=== PATIENT | female | born 1940 | race Caucasian/White ===

== ENCOUNTER 2016-11-26 15:26 | Inpatient (IN) ==
[2016-11-26] MEDS ORDERED: Ondansetron 4 MG/2 ML VIAL IVP ONE (17:36)
[2016-11-26] MEDS ORDERED: *HR* HYDROmorphone (PF) 1 MG/ML SYRINGE IM ONE (17:36)
--- NOTE | 2016-11-26 17:56 | Emergency Department Note ---
Disposition Clinical Impression: Thoracic spine fracture, Fracture of lumbar spine, Intractable pain Disposition: Admitted As Inpatient Condition: Good Time of Disposition: 21:13 Back Pain HPI - General Chief Complaint: ED Back Pain/Injury Stated Complaint: Back pain// has a fracture (t-12) Time Seen by Provider: 11/26/16 15:49 Source: patient Mode of arrival: wheelchair Limitations: no limitations Nursing Notes Reviewed: Yes Vital Signs Reviewed: Yes - History of Present Illness HPI Narrative: Patient presents to the ED with the chief complaint of back pain. Patient reports that just before Day. She was carrying a table and twisted funny and had onset of back pain. Reports that she was seen and evaluated in the emergency department and discharged home with symptomatic relief. A few weeks later went to her primary care physician who changed her from Skelaxin to baclofen in addition to her Percocet every 3-4 hours. Her pain has continued and has gotten worse. She states that she called her primary care physician who ordered an x-ray of her thoracic and lumbar spine, which showed a T12 compression fracture with moderate deformity. Patient presenting today simply for MRI. Somewhat of a concerning story is that over the last few days she has developed complete fecal incontinence. She states she had been constipated from the opioids. However, she has been unable to control her bowels whatsoever for the last few days. Denies any numbness, weakness or tingling in her upper or lower extremities. There is no abdominal pain, nausea or vomiting. No fever. - Related Data Home Medications Medication Instructions Recorded Confirmed Ascorbic Acid [Vitamin C] 1,000 mg PO DAILY 11/03/15 11/26/16 Cholecalciferol (D-3) [Vitamin D] 5,000 unit PO DAILY 11/03/15 11/26/16 Multivit-Min/Iron/Folic/Lutein 1 tab PO DAILY 11/03/15 11/26/16 [Centrum Silver Women Tablet] Raloxifene [Evista] 60 mg PO DAILY 11/03/15 11/26/16 Ranitidine HCl [Heartburn Relief] 150 mg PO BID 11/03/15 11/26/16 Vit C/E/Zn/Coppr/Lutein/Zeaxan 2 cap PO DAILY 11/03/15 11/26/16 [Preservision Areds 2 Softgel] Calcium Carbonate/Vitamin D3 2 each PO DAILY 09/02/16 11/26/16 [Calcium 600+D Softgel] Cyanocobalamin (Vitamin B-12) 500 mcg PO DAILY 09/02/16 11/26/16 [Vitamin B-12] Fish Oil/Dha/Epa [Fish Oil 1,200 1 each PO DAILY 09/02/16 11/26/16 mg Fish Oil] Golimumab (Simponi ARIA) [Simponi 50 mg IV Q8W 09/02/16 11/26/16 Aria (For Outpatient INFUSION)] Vitamin E (Dl,Tocopheryl Acet) 400 unit PO DAILY 09/02/16 11/26/16 [Vitamin E] Azathioprine [Imuran] 50 mg PO DAILY 11/26/16 Baclofen [Lioresal] 5 - 10 mg PO TID PRN 11/26/16 11/26/16 Oxycodone HCl/Acetaminophen 2 each PO Q4H PRN 11/26/16 11/26/16 [Percocet 5-325 mg Tablet] Temazepam [Restoril] 15 mg PO HS 11/26/16 11/26/16 metFORMIN [Glucophage] 500 mg PO QPM 11/26/16 11/26/16 predniSONE [PredniSONE] 20 mg PO DAILY 11/26/16 11/26/16 Allergies Allergy/AdvReac Type Severity Reaction Status Date / Time Penicillins [PCN] Allergy Mild Hives Verified 11/26/16 15:29 All systems ED: reviewed and negative except as stated. Constitutional: Denies: fever Respiratory: Denies: dyspnea Gastrointestinal: Reports: as per HPI. Denies: vomiting Musculoskeletal: Reports: back pain Past Medical History - Past Medical History Attestation: Yes The following information was validated with the patient. Source: patient Medical history: Reports: arthritis, diabetes, osteoporosis, other Surgical history: Reports: Psychiatric history: Reports: no psych history PREP MANAGER history: Reports: no PREP MANAGER history - Social History Smoking Status: Never smoker Smokeless Tobacco Status: No Alcohol use: Reports: none Drug use: Reports: none Physical Exam - General Limitations: no limitations General appearance: alert, in distress (pain) - Head Head exam: atraumatic, normocephalic, normal inspection - Eye Eye exam: Present: normal appearance, PERRL, EOMI - Respiratory Respiratory exam: Present: normal lung sounds bilaterally - Cardiovascular Cardiovascular exam: Present: regular rate, normal rhythm, normal heart sounds - Abdominal Exam Abdominal exam: Present: soft, Non-Tender. Absent: tenderness, distention, guarding, rebound, rigidity - Expanded Lower Extremity Exam Neurovascular/Tendon exam: Present: normal capillary refill. Absent: motor deficit, sensory deficit, tendon deficit - Back Exam Back exam: Present: tenderness (Tenderness in the lower thoracic upper lumbar and associated paraspinous musculature, but is worse on the right with associated tenderness. Tissue texture changes), muscle spasm, paraspinal tenderness. Absent: normal inspection, full ROM - Neurological Exam Neurological exam: Present: alert, oriented X3, CN II-XII intact - Expanded Neurological Exam Motor strength - LUE: 5/5 Motor strength - RUE: 5/5 Motor strength - LLE: 4/5 (limited by pain) Motor strength - RLE: 4/5 (limited by pain) DTR: patellar (L): 2+, patellar (R): 2+ - Psychiatric Psychiatric exam: Present: normal affect, normal mood - Skin Skin exam: Present: warm, dry, intact, normal color Course Course Narrative: Patient presenting with known T12 fracture and now having fecal incontinence. We will order an MRI to rule out spinal cord compression MRI is negative for compression, but does show in addition to T12 1 T6 and L1 compression fracture. Patient is still having pain. We will admit to the hospitalist service for spinal orthopedic consult in the morning. Patient signed out to the nighttime hospitalist and accepted for admission Vital Signs Temperature 98.1 F 11/26/16 15:29 Pulse Rate 89 11/26/16 15:29 Respiratory Rate 20 11/26/16 15:29 Blood Pressure 155/77 11/26/16 15:29 O2 Sat by Pulse Oximetry 97 11/26/16 15:29 Temperature 98.1 F 11/26/16 15:29 Pulse Rate 96 11/26/16 20:35 Respiratory Rate 16 11/26/16 21:36 Blood Pressure 148/82 11/26/16 21:36 O2 Sat by Pulse Oximetry 98 11/26/16 20:35 Oxygen Delivery Oxygen Delivery Room Air Back Pain/Injury - MDM Narrative Medical decision making narrative: I examined this patient and my medical decision-making was reviewed with the Resident Physician. I agree with the documented findings, disposition and treatment plan as described except to the extent set forth below. Patient seen and evaluated by Dr. Rojo and myself, I agree with his evaluation management plan, I supervised the care of the patient's stay. Patient presents today with some back pain and also some bowel incontinence. She has a known T12 fracture. This incontinence is new. When the imaging on her with MRI check lab work and then reassess something for pain control. She is in agreement with this plan. Lumbar Spine MRI 11/26/16 18:29 IMPRESSION: 1. Acute compression fractures of T6, T12, and L4. 2. No spinal cord or cauda equina compression. 3. 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 D/ / 11/26/2016 20:55:07 Aravind Yung MD / bala Interpreting Provider: Aravind Yung MD Thoracic Spine MRI 11/26/16 18:29 IMPRESSION: 1. Acute compression fractures of T6, T12, and L4. 2. No spinal cord or cauda equina compression. 3. 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 D/ / 11/26/2016 20:55:07 Aravind Yung MD / bala Interpreting Provider: Aravind Yung MD 2140 hrs.: Patient is going to be admitted this time hospices accepted her for admission. - Lab Data Result diagrams: 11/26/16 17:47 11/26/16 17:47 Lab Results 11/26/16 11/26/16 11/26/16 Range/Units 17:47 17:47 18:14 WBC 11.9 H (4.3-11.1) K/mcL RBC 4.69 (3.82-4.97) M/mcL Hgb 14.2 (11.5-15.4) g/dL Hct 44.2 (35.3-44.9) % MCV 94.2 (83.0-100.0) fL MCH 30.3 (28.0-33.3) pg MCHC 32.1 (31.6-35.5) g/dL RDW 14.6 H (11.5-14.5) % Plt Count 283 (140-400) K/mcL MPV 10.4 (9.4-12.4) fL Immature Gran % 1.5 (0-4) % Seg Neutrophils % 88.8 % Lymphocytes % 6.1 % Monocytes % 3.3 % Eosinophils % 0.0 % Basophils % 0.3 % Neutrophils # 10.6 H (1.6-8.9) K/mcL Lymphocytes # 0.7 (0.6-4.6) K/mcL Monocytes # 0.4 (0.0-1.3) K/mcL Eosinophils # 0.0 (0.0-0.6) K/mcL Basophils # 0.0 (0.0-0.2) K/mcL Sodium 137 (136-145) mEq/L Potassium 4.7 H (3.5-4.5) mEq/L Chloride 100 (98-109) mEq/L Carbon Dioxide 27 (19-29) mEq/L BUN 14 (7-20) mg/dL Creatinine 0.89 (0.57-1.11) mg/dL Est GFR ( Amer) > 60 (> 60) Est GFR (Non-Af Amer) > 60 (> 60) BUN/Creatinine Ratio 16 (6-26) Glucose 269 H (70-99) mg/dL Calculated Osmolality 294 (280-300) Calcium 9.4 (8.6-10.8) mg/dL Total Bilirubin 0.5 (0.2-1.2) mg/dL Direct Bilirubin 0.3 (0.0-0.5) mg/dL Indirect Bilirubin 0.2 (0.0-1.2) mg/dL AST 19 (5-34) Units/L ALT 22 (0-55) Units/L Alkaline Phosphatase 105 (38-126) Units/L Serum Total Protein 6.9 (6.0-8.3) g/dL Albumin 3.2 L (3.5-5.0) g/dL Globulin 3.7 H (2.4-3.5) g/dL Albumin/Globulin Ratio 0.9 L (1.1-2.2) Urine Color Yellow (Yellow) Urine Clarity Cloudy A (Clear) Urine pH 7.5 (5.0-8.0) pH Units Ur Specific [place] 1.024 (1.010-1.025) Urine Protein Negative (Neg-Trace) mg/dL Urine Glucose (UA) >=1000 H (Normal) mg/dL Urine Ketones 15 H (Negative) mg/dL Urine Blood Negative (Negative) Urine Nitrite Negative (Negative) Urine Bilirubin Negative (Negative) Urine Urobilinogen Normal (Normal) mg/dL Ur Leukocyte Esterase Small H (Negative) Urine Microscopic RBC 5-15 H (0-3) per hpf Urine Microscopic WBC 5-15 H (0-3) per hpf Ur Squamous Epith Cells Many H (None-Few) per lpf Urine Bacteria None Seen (None-Few) per hpf Hyaline Casts None Seen (None-Few) per lpf Ur Culture Indicated? YES A (NO)
[2016-11-26 18:00] LABS: Basophils % 0.3 %; Hematocrit 44.2 % (35.3-44.9); Hemoglobin 14.2 g/dL (11.5-15.4); Immature Granulocytes % 1.5 % (0-4); Lymphocytes # 0.7 K/mcL (0.6-4.6); Lymphocytes % 6.1 %; Mean Corpuscular HGB Conc 32.1 g/dL (31.6-35.5); Mean Corpuscular Hemoglobin 30.3 pg (28.0-33.3); Mean Corpuscular Volume 94.2 fL (83.0-100.0); Mean Platelet Volume 10.4 fL (9.4-12.4); Monocytes # 0.4 K/mcL (0.0-1.3); Monocytes % 3.3 %; Neutrophils # 10.6 K/mcL (1.6-8.9); Platelet Count 283 K/mcL (140-400); Red Blood Count 4.69 M/mcL (3.82-4.97); Red Cell Distribution Width 14.6 % (11.5-14.5); Segmented Neutrophils % 88.8 %
[2016-11-26 18:10] LABS: Alanine Aminotransferase 22 Units/L (0-55); Albumin 3.2 g/dL (3.5-5.0); Albumin/Globulin Ratio 0.9 (1.1-2.2); Alkaline Phosphatase 105 Units/L (38-126); Aspartate Amino Transferase 19 Units/L (5-34); BUN/Creatinine Ratio 16 (6-26); Bilirubin,Direct 0.3 mg/dL (0.0-0.5); Bilirubin,Indirect 0.2 mg/dL (0.0-1.2); Bilirubin,Total 0.5 mg/dL (0.2-1.2); Blood Urea Nitrogen 14 mg/dL (7-20); Calcium 9.4 mg/dL (8.6-10.8); Carbon Dioxide 27 mEq/L (19-29); Chloride 100 mEq/L (98-109); Globulin 3.7 g/dL (2.4-3.5); Glucose 269 mg/dL (70-99); Osmolality,Calculated 294 (280-300); Potassium 4.7 mEq/L (3.5-4.5); Sodium 137 mEq/L (136-145); Total Protein 6.9 g/dL (6.0-8.3); eGFR For African Americans > 60 (> 60); eGFR For Non-African Americans > 60 (> 60)
[2016-11-26 18:24] LABS: Bilirubin,Urine Negative (Negative); Blood,Urine Negative (Negative); Clarity,Urine Cloudy (Clear); Color,Urine Yellow (Yellow); Glucose,Urine (UA) >=1000 mg/dL (Normal); Ketones,Urine 15 mg/dL (Negative); Leukocyte Esterase,Urine Small (Negative); Nitrite,Urine Negative (Negative); PH,Urine 7.5 pH Units (5.0-8.0); Protein,Urine Negative (Neg-Trace); Specific Gravity,Urine 1.024 (1.010-1.025); Urobilinogen,Urine Normal (Normal)
[2016-11-26 18:26] LABS: Bacteria,Urine None Seen per hpf (None-Few); Hyaline Casts,Urine None Seen per lpf (None-Few); Squamous Epithelial Cell,Urine Many per lpf (None-Few)
[2016-11-26] MEDS ORDERED: *HR* LORazepam 2 MG/ML VIAL IVP ONE (18:34)
[2016-11-26] MEDS ORDERED: *HR* HYDROmorphone (PF) 1 MG/ML SYRINGE IVP ONE (18:34)
[2016-11-27] MEDS ORDERED: *HR* OxyCODONE/APAP 5/325 TABLET PO PRN (03:59)
[2016-11-27] MEDS ORDERED: *HR* HYDROmorphone (PF) 1 MG/ML SYRINGE IVP PRN (04:00)
[2016-11-27] MEDS ORDERED: Naloxone 0.4 MG/ML INJ IVP PRN (04:36)
[2016-11-27] MEDS ORDERED: Ondansetron 4 MG/2 ML VIAL IVP PRN (04:36)
[2016-11-27] MEDS ORDERED: *HR* Morphine 2 MG/ML SYRINGE IVP PRN (04:36)
[2016-11-27] MEDS ORDERED: Dextrose Gel 15 GM PO PRN ×2 (04:42)
[2016-11-27] MEDS ORDERED: *HR* Dextrose 50 % in Water (Syg) 50 ML SYRINGE IVP PRN (04:42)
[2016-11-27] MEDS ORDERED: D5% in Water 1,000 ML IVC PRN (04:42)
--- NOTE | 2016-11-27 04:45 | Internal Med History&Physical ---
Date of Encounter: 11/27/16 Time of Encounter: 04:30 Assessment and Plan (1) Vertebral compression fracture Current visit: Yes Status: Acute Acute compression fractures of T6, T12 and L4 - causing severe lower back pain No evidence of spinal cord compression or cauda equina, severe degenerative left foraminal stenosis at L4-L5 and L5-S1 Continue IV Morphine PRN, Percocet PRN, Baclofen PRN Continue home meds including vitamin D and Evista MRI L-spine and T-spine - reviewed Orthopedics consult - Dr Hawkins Continue to monitor closely, cardiac telemetry Qualifiers: Encounter type: initial encounter Qualified Code(s): M48.50XA - Collapsed vertebra, not elsewhere classified, site unspecified, initial encounter for fracture (2) Rheumatoid arthritis Current visit: No Status: Chronic Continue home meds Qualifiers: Rheumatoid arthritis location: unspecified site Rheumatoid factor presence : unspecified presence Qualified Code(s): M06.9 - Rheumatoid arthritis, unspecified (3) Osteoporosis Current visit: Yes Status: Chronic Qualifiers: Osteoporosis type: age-related Presence of current pathological fracture: unspecified Qualified Code(s): M81.0 - Age-related osteoporosis without current pathological fracture (4) Diabetes Current visit: No Status: Acute Diabetes mellitus type 2, [id number], hyperglycemia Continue glucose checks, insulin sliding scale Qualifiers: Diabetes mellitus type: type 2 Diabetes mellitus complication status: with unspecified complications Diabetes mellitus long term care phlebotomist insulin use: without long term care phlebotomist use Qualified Code(s): E11.8 - Type 2 diabetes mellitus with unspecified complications (5) DVT prophylaxis Current visit: No Status: Acute Continue heparin subcutaneous Internal Medicine - H&P: HPI Chief complaint: back pain Admitted From: Emergency Dept Plans for Post Hospital Care: Home History of present illness: Ms. Miranda is a 76 year old female osteoporosis, diabetes, rheumatoid arthritis and recent history of a partial small bowel obstruction. Patient presents to the ED with complaints of back pain. Examined in the room. Patient is awake and alert. Able to provide history. Not in any distress. No family at bedside. Patient states about one week ago she was walking using her cane, and she twisted suddenly and then felt some pain in her back. Symptoms are gradually been worsening. She was initially diagnosed with muscle spasm. Patient states she has chronic back problems and has been seeing a chiropractor. Patient states her chiropractor advised her to get a CT scan for possible vertebral fracture about 2-3 weeks ago. Patient states her pain has been worsening. She has been having no difficulty standing up and walking. She describes the pain as sharp and radiates straight to her abdomen. Worse with movement. Improves with pain medication. Patient denies urinary incontinence. There is some concern for fecal incontinence. Denies any numbness or tingling in lower extremities. No focal neurological deficits. Patient apparently had some imaging done as outpatient and was found to have a compression fracture. She has no other acute complaints. Initial workup in the ED today reveals acute compression fractures of T6, T12 and L4. No evidence of spinal cord, cauda equina compression. 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 All other workup was fairly benign. Patient will need pain control for acute compression fracture. Orthopedic consult is pending. Dr. Hawkins has been consulted. CODE STATUS full code. Past Med Surg Social Fam HX - Past Medical History Medical history: arthritis, cancer, diabetes, osteoporosis, other Psychiatric history: no psych history - Past Surgical History Surgical History: - Social History Smoking Status: Never smoker Smokeless Tobacco Status: No Alcohol use: none Drug use: none - Family History Father Living Status: Hx Family Cancer: Yes Mother Living Status: Hx Family Cancer: Yes Internal Medicine - H&P: Meds Ascorbic Acid [Vitamin C] 1,000 mg PO DAILY 11/03/15 [History] Cholecalciferol (D-3) [Vitamin D] 5,000 unit PO DAILY 11/03/15 [History] Multivit-Min/Iron/Folic/Lutein [Centrum Silver Women Tablet] 1 tab PO DAILY [History] Raloxifene [Evista] 60 mg PO DAILY 11/03/15 [History] Ranitidine HCl [Heartburn Relief] 150 mg PO BID 11/03/15 [History] Vit C/E/Zn/Coppr/Lutein/Zeaxan [Preservision Areds 2 Softgel] 2 cap PO DAILY [History] Calcium Carbonate/Vitamin D3 [Calcium 600+D Softgel] 2 each PO DAILY 09/02/16 [ History] Cyanocobalamin (Vitamin B-12) [Vitamin B-12] 500 mcg PO DAILY 09/02/16 [History] Fish Oil/Dha/Epa [Fish Oil 1,200 mg Fish Oil] 1 each PO DAILY 09/02/16 [History] Golimumab (Simponi ARIA) [Simponi Aria (For Outpatient INFUSION)] 50 mg IV Q8W 09/02/16 [History] Vitamin E (Dl,Tocopheryl Acet) [Vitamin E] 400 unit PO DAILY 09/02/16 [History] Azathioprine [Imuran] 50 mg PO DAILY 11/26/16 [History] Baclofen [Lioresal] 5 - 10 mg PO TID PRN 11/26/16 [History] Oxycodone HCl/Acetaminophen [Percocet 5-325 mg Tablet] 2 each PO Q4H PRN [History] Temazepam [Restoril] 15 mg PO HS 11/26/16 [History] metFORMIN [Glucophage] 500 mg PO QPM 11/26/16 [History] predniSONE [PredniSONE] 20 mg PO DAILY 11/26/16 [History] 3 Allergy/AdvReac Type Severity Reaction Status Date / Time Penicillins [PCN] Allergy Mild Hives Verified 11/26/16 15:29 All Systems PM: A 10-system review of systems was performed and is negative for pertinent findings except as documented above in the HPI. - Constitutional Constitutional: fatigue, no fever(s), no weakness - EENT Eyes: no blurry vision - Cardiovascular Cardiovascular ROS IM: no chest pain, no diaphoresis, no dyspnea, no dyspnea on exertion, no edema, no lightheadedness, no orthopnea, no syncope - Respiratory Respiratory: no cough, no dyspnea, no hemoptysis, no dyspnea on exertion, no wheezing - Gastrointestinal Gastrointestinal: no abdominal pain, no belching, no bloating, no cramping, no diarrhea, no hematochezia, no nausea, no vomiting - Genitourinary Genitourinary: no dysuria - Musculoskeletal Musculoskeletal ROS IM: back pain, myalgias Additional comments: Back pain and stiffness - Neurological Neurological ROS: no abnormal gait, no abnormal hearing, no convulsions, no dizziness, no loss of vision, no numbness, no tingling - Constitutional Vitals: Temp Pulse Resp BP Pulse Ox 97.6 F 100 20 166/77 93 11/27/16 03:20 11/27/16 03:20 11/27/16 03:20 11/27/16 03:20 11/27/16 03:20 General appearance: Present: A&O X 3, pleasant, no acute distress, loss of weight, answers questions appropriately - Head Head exam: Present: atraumatic - Eye Eye exam: Present: EOMI - ENT ENT exam: Present: mucous membranes moist - Respiratory Respiratory exam: Present: CTAB. Absent: rales, rhonchi, wheezes, tachypnea - Cardiovascular Cardiovascular exam: Present: RRR, +S1, +S2 - GI/Abdominal GI/Abdominal exam: Present: soft. Absent: distended, firm, guarding, tenderness - Extremities Exam Extremities exam: Present: radial pulses palpable and symmetrical. Absent: calf tenderness, cyanotic, pedal edema - Back Exam Back exam: Present: muscle spasm, paraspinal tenderness, vertebral tenderness - Neurological Exam Neurological exam: Present: alert, oriented X3, no focal deficits. Absent: facial droop, speech deficit Internal Med - H&P Results - Labs CBC & Chem 7: 11/26/16 17:47 11/26/16 17:47
[2016-11-27] MEDS ORDERED: Baclofen 10 MG TABLET PO PRN (05:29)
[2016-11-27] MEDS ORDERED: Famotidine 20 MG/2 ML VIAL IVP SCH (06:00)
[2016-11-27] MEDS: *HR* OxyCODONE/APAP 5/325 TABLET PO PRN ×3 (06:09→22:37)
[2016-11-27] MEDS: *HR* Heparin 5,000 UNIT/ML VIAL SQ SCH ×2 (06:10→16:54)
[2016-11-27] MEDS ORDERED: Famotidine 20 MG TABLET PO SCH (07:30)
[2016-11-27] MEDS: Multivit/Ca/Min/Fe/FA 1 TAB TABLET PO SCH ×2 (08:49→08:50)
[2016-11-27] MEDS: Cyanocobalamin (B-12) 1,000 MCG TABLET PO SCH (08:49)
[2016-11-27] MEDS: Ascorbic Acid 500 MG TABLET PO SCH (08:50)
[2016-11-27] MEDS: Insulin LISPRO 300 UNITS/3 ML VIAL SQ SCH ×4 (08:55→22:24)
[2016-11-27] MEDS ORDERED: Cholecalciferol (D-3) 1,000 UNIT TABLET PO SCH (09:00)
[2016-11-27] MEDS ORDERED: [Fish Oil 1,200 Mg PO SCH (09:00)
[2016-11-27] MEDS ORDERED: Patient Taking Own Medication 1 EACH PO SCH (09:00)
[2016-11-27] MEDS ORDERED: predniSONE 20 MG TABLET PO SCH (09:00)
[2016-11-27] MEDS ORDERED: predniSONE 20 MG TABLET PO ONE (12:45)
[2016-11-27] MEDS: Cholecalciferol (D-3) 1,000 UNIT TABLET PO SCH (13:46)
--- NOTE | 2016-11-27 19:15 | Event Note ---
Date of Encounter: 11/27/16 Time of Encounter: 12:00 Patient presented to the hospital for back pain. She tells me that she was trying to move a table and twisted her back and started having severe sharp mid to lower back pain. She states that she uses a walker however she has been having increasing left lower extremity weakness. She is a very poor historian and cannot provide accurate timing of the events. On exam she is in no acute distress awake alert and oriented. Heart is regular S1-S2. Lungs are clear. Abdomen is soft. Neurologic exam: Briefly reveals equal strength in both upper extremities and diminished hip flexor strength on the left, 2/5, preserved distal muscle strength in both lower extremities, right lower extremity 4/5. MRI report was reviewed and shows T6, T12 and L4 acute compression fractures and severe left foraminal stenosis at L4-L5 and L5-S1. There is no imaging evidence of cauda equina compression or spinal cord compression. Case was discussed with Dr. Medellin who recommends consulting a spine surgeon. I have discussed the case with Dr. Barcenas who will evaluate the patient. Plan: Bedrest. Pain medication. Continue with prednisone. Follow-up with spine surgeon.
[2016-11-27] MEDS: Temazepam 15 MG CAPSULE PO SCH (22:22)
[2016-11-28 05:23] LABS: Basophils % 0.3 %; Eosinophils % 0.3 %; Hemoglobin 12.9 g/dL (11.5-15.4); Immature Granulocytes % 1.8 % (0-4); Lymphocytes % 10.1 %; Mean Corpuscular HGB Conc 32.3 g/dL (31.6-35.5); Mean Corpuscular Hemoglobin 30.4 pg (28.0-33.3); Mean Corpuscular Volume 94.3 fL (83.0-100.0); Mean Platelet Volume 10.4 fL (9.4-12.4); Monocytes # 0.7 K/mcL (0.0-1.3); Monocytes % 6.8 %; Neutrophils # 7.8 K/mcL (1.6-8.9); Platelet Count 261 K/mcL (140-400); Red Blood Count 4.24 M/mcL (3.82-4.97); Red Cell Distribution Width 14.2 % (11.5-14.5); Segmented Neutrophils % 80.7 %
[2016-11-28 06:20] LABS: BUN/Creatinine Ratio 15 (6-26); Blood Urea Nitrogen 13 mg/dL (7-20); Carbon Dioxide 29 mEq/L (19-29); Chloride 100 mEq/L (98-109); Glucose 187 mg/dL (70-99); Osmolality,Calculated 293 (280-300); Potassium 4.2 mEq/L (3.5-4.5); Sodium 139 mEq/L (136-145); eGFR For African Americans > 60 (> 60); eGFR For Non-African Americans > 60 (> 60)
[2016-11-28] MEDS: *HR* Heparin 5,000 UNIT/ML VIAL SQ SCH ×2 (06:59→17:16)
[2016-11-28] MEDS: Multivit/Ca/Min/Fe/FA 1 TAB TABLET PO SCH ×2 (08:26→08:28)
[2016-11-28] MEDS: Cyanocobalamin (B-12) 1,000 MCG TABLET PO SCH (08:27)
[2016-11-28] MEDS: Famotidine 20 MG TABLET PO SCH (08:27)
[2016-11-28] MEDS: Insulin LISPRO 300 UNITS/3 ML VIAL SQ SCH ×4 (08:27→22:49)
[2016-11-28] MEDS: Cholecalciferol (D-3) 1,000 UNIT TABLET PO SCH (08:27)
[2016-11-28] MEDS: Ascorbic Acid 500 MG TABLET PO SCH (08:27)
[2016-11-28] MEDS: predniSONE 20 MG TABLET PO SCH (08:27)
[2016-11-28] MEDS: *HR* OxyCODONE/APAP 5/325 TABLET PO PRN ×3 (08:30→20:20)
--- NOTE | 2016-11-28 13:48 | Internal Med Progress Note ---
Date of Encounter: 11/28/16 Time of Encounter: 13:47 - Assessment and plan (1) Intractable pain Current Visit: Yes Status: Acute Assessment and plan: due to acute compression fracture of Vertebra T6,T12 and L4 May get benefit with Vertbroplasty Waiting on Ortho eval Pt is still requesting for more frequent IV pain medication PT / OT eval ordered Cont anti spasmodics started on short course of PO steroids Prednisone # 2/7 She is at high risk for respiratory compromise with IV narcotics Also she does need to stay in the hospital more than 2 night due to her complex medical problems, and required more frequent IV pain medication, so will change her to full admission today I did reviewed my colleague's H & P including HPI, PMH, PSH, SH, FH and ROS..no changes noticed (2) Vertebral compression fracture Current Visit: Yes Status: Acute Assessment and plan: see above Qualifiers: Encounter type: initial encounter Qualified Code(s): M48.50XA - Collapsed vertebra, not elsewhere classified, site unspecified, initial encounter for fracture (3) Constipation Current Visit: Yes Status: Acute Assessment and plan: started on stool softeners her current constipation induced by narcotics and severe back pain with vertebral fracture Qualifiers: Qualified Code(s): K59.00 - Constipation, unspecified (4) Diabetes Current Visit: No Status: Acute Assessment and plan: on ISS Qualifiers: Diabetes mellitus type: type 2 Diabetes mellitus complication status: with unspecified complications Diabetes mellitus continuous churn buttermaker insulin use: without snf use Qualified Code(s): E11.8 - Type 2 diabetes mellitus with unspecified complications (5) Rheumatoid arthritis Current Visit: No Status: Chronic Qualifiers: Rheumatoid arthritis location: unspecified site Rheumatoid factor presence : unspecified presence Qualified Code(s): M06.9 - Rheumatoid arthritis, unspecified (6) Osteoporosis Current Visit: Yes Status: Chronic Qualifiers: Osteoporosis type: age-related Presence of current pathological fracture: unspecified Qualified Code(s): M81.0 - Age-related osteoporosis without current pathological fracture (7) DVT prophylaxis Current Visit: No Status: Acute Assessment and plan: on SQ heparin - Subjective Interval history: Ms. Miranda is a 76 year old female osteoporosis, diabetes, rheumatoid arthritis and recent history of a partial small bowel obstruction. Patient presents to the ED with complaints of back pain. Initial workup in the ED today reveals acute compression fractures of T6, T12 and L4. No evidence of spinal cord, cauda equina compression. 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 Pt is still in severe low back pain asking for more frequent IV pain medication. Still no BM yet. Denied any CP / SOB. - Constitutional Vitals: Temp Pulse Resp BP Pulse Ox 98.3 F 81 16 137/77 95 11/28/16 10:33 11/28/16 10:33 11/28/16 10:33 11/28/16 10:33 11/28/16 10:33 General appearance: Present: A&O X 3, pleasant, no acute distress, loss of weight, answers questions appropriately - Head Head exam: Present: atraumatic, normal inspection - Respiratory Respiratory exam: Present: decreased breath sounds, wheezes. Absent: respiratory distress, rhonchi - Cardiovascular Cardiovascular exam: Present: RRR, +S1, +S2. Absent: diastolic murmur, gallop, rubs, systolic murmur - GI/Abdominal GI/Abdominal exam: Present: normal bowel sounds, soft. Absent: rebound, rigid, tenderness - Back Exam Back exam: Present: paraspinal tenderness, vertebral tenderness (thoraco lumbar region). Absent: CVA tenderness (L), CVA tenderness (R) - Neurological Exam Neurological exam: Present: alert, oriented X3 - Psychiatric Psychiatric exam: Present: normal affect, normal mood Internal Medicine: Result - Labs CBC & Chem 7: 11/28/16 04:57 11/28/16 04:57 Labs: Short CBC 11/28/16 Range/Units 04:57 WBC 9.6 (4.3-11.1) K/mcL Hgb 12.9 (11.5-15.4) g/dL Hct 40.0 (35.3-44.9) % Plt Count 261 (140-400) K/mcL Neutrophils # 7.8 (1.6-8.9) K/mcL BMP 11/28/16 04:57 Sodium 139 Potassium 4.2 Chloride 100 Carbon Dioxide 29 BUN 13 Creatinine 0.84 Glucose 187 H Calcium 9.0 - ABG Interpretation ABG results: PT/INR, D-dimer PT 11.0 Seconds (9.4-12.1) 11/28/16 04:57 Consult Discharge Plan - Plan Referrals: Vicente Caballero DO [Primary Care Provider] - 12/11/16 9:45 am
[2016-11-28] MEDS ORDERED: Sennosides 8.6 MG TABLET PO PRN (13:58)
--- NOTE | 2016-11-28 16:50 | Pain Management Consultation ---
Date of Encounter: 11/28/16 Time of Encounter: 16:46 Assessment and Plan (1) Compression fracture Current Visit: Yes Status: Chronic There are relatively older compression fractures seen at T6 and L4. T12 is acutely fractured and edematous on the recent MRI scans. I discussed risks and benefits of kyphoplasty procedure. The patient will like to discuss with her daughter. Actually called her daughter on the phone and had a discussion about risks and benefits and long-term pain management options. The patient is currently scheduled at [facility] in the chronic pain clinic there. She would like a second opinion about kyphoplasty. We will arrange outpatient follow-up with Dr. Barcenas for the second opinion. I will also schedule her with me for chronic pain care. Recommend stopping baclofen. Recommend adding Flexeril 10 mg 3 times a day when necessary low back pain. Recommend continuing 10 mg oxycodone every 3-4 hours when necessary for pain while admitted as an inpatient. Also recommend 2- 4 week course of oral pain medication upon discharge for pain control during acute phase of fracture resolution. Further pain control should be managed as an outpatient either with myself or at [facility]. I do not recommend long- term opioids beyond 4 weeks after the fracture had occurred, limited weekend. The assessment and plan as outlined above was discussed with the patient and/or family members who expressed understanding and agreement. All questions were answered. History of Present Illness Chief complaint: back pain HPI: Ms. Miranda is a 76 year old female suffering with stabbing pain in the back. The pain started Labor Day when she was carrying a table. She felt a pop in her back. She does have long-standing, chronic low back pain. However, ever since limited weekend, the pain is much worse. The pain intensity now is high, 10/10. She denies pain radiating into her back now or in the past 2 weeks. She has chronic rheumatoid arthritis for which she has been treated with oral steroids, prednisone. Pain now is centered in the middle back near her bra strap. Past Med Surg Social Fam HX - Past Medical History Medical history: arthritis, cancer, diabetes, osteoporosis, other Psychiatric history: no psych history - Past Surgical History Surgical History: - Social History Smoking Status: Never smoker Smokeless Tobacco Status: No Alcohol use: none Drug use: none - Family History Father Living Status: Hx Family Cancer: Yes Mother Living Status: Hx Family Cancer: Yes Medications and Allergies Ascorbic Acid [Vitamin C] 1,000 mg PO DAILY 11/03/15 [History] Cholecalciferol (D-3) [Vitamin D] 5,000 unit PO DAILY 11/03/15 [History] Multivit-Min/Iron/Folic/Lutein [Centrum Silver Women Tablet] 1 tab PO DAILY [History] Raloxifene [Evista] 60 mg PO DAILY 11/03/15 [History] Ranitidine HCl [Heartburn Relief] 150 mg PO BID 11/03/15 [History] Vit C/E/Zn/Coppr/Lutein/Zeaxan [Preservision Areds 2 Softgel] 2 cap PO DAILY [History] Calcium Carbonate/Vitamin D3 [Calcium 600+D Softgel] 2 each PO DAILY 09/02/16 [ History] Cyanocobalamin (Vitamin B-12) [Vitamin B-12] 500 mcg PO DAILY 09/02/16 [History] Fish Oil/Dha/Epa [Fish Oil 1,200 mg Fish Oil] 1 each PO DAILY 09/02/16 [History] Golimumab (Simponi ARIA) [Simponi Aria (For Outpatient INFUSION)] 50 mg IV Q8W 09/02/16 [History] Vitamin E (Dl,Tocopheryl Acet) [Vitamin E] 400 unit PO DAILY 09/02/16 [History] Azathioprine [Imuran] 50 mg PO DAILY 11/26/16 [History] Baclofen [Lioresal] 5 - 10 mg PO TID PRN 11/26/16 [History] Oxycodone HCl/Acetaminophen [Percocet 5-325 mg Tablet] 2 each PO Q4H PRN [History] Temazepam [Restoril] 15 mg PO HS 11/26/16 [History] metFORMIN [Glucophage] 500 mg PO QPM 11/26/16 [History] predniSONE [PredniSONE] 20 mg PO DAILY 11/26/16 [History] 3 Allergy/AdvReac Type Severity Reaction Status Date / Time Penicillins [PCN] Allergy Mild Hives Verified 11/26/16 15:29 Review of Systems - Constitutional Constitutional ROS IM: no photophobia, no phonophobia, no daytime sleepiness, no fever(s), no stops breathing during sleep - EENT Nose, mouth and throat: no headache(s), no neck pain, no neck trauma - Cardiovascular Cardiovascular ROS: no chest pain, no leg edema, no lightheadedness - Respiratory Respiratory: no pain on inspiration, no pain with cough - Gastrointestinal Gastrointestinal: no abdominal pain, no constipation, no diarrhea, no heartburn - Genitourinary Genitourinary ROS: no difficulty urinating, no flank pain, no urinary hesitancy - Musculoskeletal Musculoskeletal ROS: no muscle weakness, no numbness, no radiating pain into limb, no tingling - Integumentary Integumentary: no erythema, no lesions, no swelling - Neurological Neurological ROS: no abnormal gait, no behavioral changes, no focal weakness, no radicular pain - Psychiatric Psychiatric general: no anxiety, no confusion, no depression - Hematologic/Lymphatic Hematologic/Lymphatic pediatric: no easy bleeding, no easy bruising Physical Exam Initial Vital Signs Temp Pulse Resp BP Pulse Ox 98.1 F 89 20 155/77 97 11/26/16 15:29 11/26/16 15:29 11/26/16 15:29 11/26/16 15:11/26/16 15:29 - Additional Findings EYES:: pupils equal and round, no myosis. SKIN:: no areas of echymoses or petechiae CARDIOVASCULAR:: regular rate and rhythm, no murmurs PULMONARY:: lung martinez clear to auscultation bilaterally. Quiet, normal respiratory pattern. GASTROINTESTINAL:: active bowel sounds. MUSCULOSKELETAL INSPECTION:: no surgical scarring in lumbar spine or thoracic spine. Scoliosis is present. PALPATION:: paraspinous musculature is tender to deep palpation in the lumbar area bilaterally. Palpation of the spinous processes along the thoracic and lumbar neuraxis is nonpainful. Interestingly, percussion of the spine is nonpainful. ROM:: Active flexion and extension are reduced in the lumbar area. Active Rotation is reduced in the lumbar area. STRENGTH:: RIGHT hip flexors: 5/5 :: LEFT hip flexors: 5/5 RIGHT hip adduction 5/5 :: LEFT hip adduction 5/5 RIGHT hip abduction 5/5 :: LEFT hip abduction 5/5 RIGHT knee extension 5/5 :: LEFT knee extension 5/5 RIGHT knee flexion 5/5 :: LEFT knee flexion 5/5 RIGHT ankle dorsiflexion 5/5 :: LEFT ankle dorsiflexion 5/5 RIGHT ankle plantarflexion 5/5 :: LEFT ankle plantarflexion 5/5 RIGHT great toe dorsiflexion 5/5 :: LEFT great toe dorsiflexion 5/5 RIGHT great toe plantarflexion 5/5 :: LEFT great toe plantarflexion 5/5 STRAIGHT LEG RAISE:: LLE is negative at 120 degrees. RLE is negative at 120 degrees. NEUROLOGIC SENSATION:: hypesthesia is not noted in lower extremity dermatomes. SIGNS OF NEUROVASCULAR COMPRESSION Spasticity:: none Atrophy:: not present in UE or LE musculature Fasciculation:: not present in UE or LE musculature PSYCHIATRIC:: ORIENTATION:: awake and alert. INSIGHT:: good awareness of illness. AFFECT:: pleasant. Radiology Images Viewed By Me:: 11/27/2016 thoracic and lumbar MRI show acute T12 compression fracture. There are also older compression fractures with very mild edema noted at T6 and L4. The superior endplate of T6 is fractured. The inferior endplate of L4 is fractured. T12 shows approximate 25% height loss. I have reviewed and agree with information documented in the scribed documentation, ROS, patient medications, allergies, medical history, surgical history, social history, and family history. Results - Labs 11/28/16 04:57 11/28/16 04:57 Abnormal lab results Glucose 187 mg/dL (70-99) H 11/28/16 04:57 POC Glucose 252 (58-89) H 11/27/16 20:53 Albumin 3.2 g/dL (3.5-5.0) L 11/26/16 17:47 Globulin 3.7 g/dL (2.4-3.5) H 11/26/16 17:47 Albumin/Globulin Ratio 0.9 (1.1-2.2) L 11/26/16 17:47 Urine Clarity Cloudy (Clear) A 11/26/16 18:14 Urine Glucose (UA) >=1000 mg/dL (Normal) H 11/26/16 18:14 Urine Ketones 15 mg/dL (Negative) H 11/26/16 18:14 Ur Leukocyte Esterase Small (Negative) H 11/26/16 18:14 Urine Microscopic RBC 5-15 per hpf (0-3) H 11/26/16 18:14 Urine Microscopic WBC 5-15 per hpf (0-3) H 11/26/16 18:14 Ur Squamous Epith Cells Many per lpf (None-Few) H 11/26/16 18:14 Ur Culture Indicated? YES (NO) A 11/26/16 18:14 All other labs normal. Consult Discharge Plan - Plan Referrals: Vicente Caballero DO [Primary Care Provider] - 12/11/16 9:45 am
[2016-11-28] MEDS: Temazepam 15 MG CAPSULE PO SCH (23:05)
[2016-11-29] MEDS: *HR* Heparin 5,000 UNIT/ML VIAL SQ SCH ×2 (05:29→17:05)
[2016-11-29] MEDS: Insulin LISPRO 300 UNITS/3 ML VIAL SQ SCH ×4 (08:46→22:12)
[2016-11-29] MEDS: predniSONE 20 MG TABLET PO SCH (08:47)
[2016-11-29] MEDS: Cyanocobalamin (B-12) 1,000 MCG TABLET PO SCH (08:47)
[2016-11-29] MEDS: Ascorbic Acid 500 MG TABLET PO SCH (08:47)
[2016-11-29] MEDS: Multivit/Ca/Min/Fe/FA 1 TAB TABLET PO SCH ×2 (08:47→08:56)
[2016-11-29] MEDS: Famotidine 20 MG TABLET PO SCH (08:48)
[2016-11-29] MEDS: Cholecalciferol (D-3) 1,000 UNIT TABLET PO SCH (08:48)
[2016-11-29] MEDS: *HR* OxyCODONE/APAP 5/325 TABLET PO PRN ×3 (09:02→20:48)
--- NOTE | 2016-11-29 13:59 | Internal Med Progress Note ---
Date of Encounter: 11/29/16 Time of Encounter: 13:57 - Assessment and plan (1) Intractable pain Current Visit: Yes Status: Acute Assessment and plan: due to acute compression fracture of Vertebra T6,T12 and L4 She was evaluated by back surgeon May get benefit with Vertbroplasty .. But pt does not wanted to for any procedure now She opted to try PT / OT and Pain medication PT / OT on board OT recommend ECF placement Will talk to SW about ECF placement for short term PT / OT Changed anti spasmodics to Flexaril as per Ortho recommendations Cont on short course of PO steroids Prednisone # 3/7 She is at high risk for respiratory compromise with IV narcotics (2) Vertebral compression fracture Current Visit: Yes Status: Acute Assessment and plan: see above Qualifiers: Encounter type: initial encounter Qualified Code(s): M48.50XA - Collapsed vertebra, not elsewhere classified, site unspecified, initial encounter for fracture (3) Constipation Current Visit: Yes Status: Acute Assessment and plan: her current constipation induced by narcotics and severe back pain with vertebral fracture improved Cont stool softeners Qualifiers: Qualified Code(s): K59.00 - Constipation, unspecified (4) Diabetes Current Visit: No Status: Acute Assessment and plan: on ISS Qualifiers: Diabetes mellitus type: type 2 Diabetes mellitus complication status: with unspecified complications Diabetes mellitus intermodal customer service insulin use: without snf use Qualified Code(s): E11.8 - Type 2 diabetes mellitus with unspecified complications (5) Rheumatoid arthritis Current Visit: No Status: Chronic Qualifiers: Rheumatoid arthritis location: unspecified site Rheumatoid factor presence : unspecified presence Qualified Code(s): M06.9 - Rheumatoid arthritis, unspecified (6) Osteoporosis Current Visit: Yes Status: Chronic Qualifiers: Osteoporosis type: age-related Presence of current pathological fracture: unspecified Qualified Code(s): M81.0 - Age-related osteoporosis without current pathological fracture (7) DVT prophylaxis Current Visit: No Status: Acute Assessment and plan: on SQ heparin - Subjective Interval history: Ms. Miranda is a 76 year old female osteoporosis, diabetes, rheumatoid arthritis and recent history of a partial small bowel obstruction. Patient presents to the ED with complaints of back pain. Initial workup in the ED today reveals acute compression fractures of T6, T12 and L4. No evidence of spinal cord, cauda equina compression. 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 Pt stated her low back pain is little better today. Able to participate in OT ok. Had a BM this morning.Denied any CP / SOB. - Constitutional Vitals: Temp Pulse Resp BP Pulse Ox 97.8 F 85 14 126/73 92 11/29/16 11:12 11/29/16 11:12 11/29/16 11:12 11/29/16 11:12 11/29/16 11:12 General appearance: Present: A&O X 3, pleasant, no acute distress, loss of weight, answers questions appropriately - Head Head exam: Present: atraumatic, normal inspection - Respiratory Respiratory exam: Present: decreased breath sounds. Absent: rales, respiratory distress, rhonchi, wheezes - Cardiovascular Cardiovascular exam: Present: RRR, +S1, +S2. Absent: systolic murmur - GI/Abdominal GI/Abdominal exam: Present: normal bowel sounds, soft. Absent: rebound, rigid, tenderness - Extremities Exam Extremities exam: Absent: calf tenderness, pedal edema, tenderness - Back Exam Back exam: Present: vertebral tenderness. Absent: CVA tenderness (L), CVA tenderness (R) - Neurological Exam Neurological exam: Present: alert, oriented X3 - Psychiatric Psychiatric exam: Present: normal affect, normal mood Internal Medicine: Result - Labs CBC & Chem 7: 11/28/16 04:57 11/28/16 04:57 - ABG Interpretation ABG results: PT/INR, D-dimer PT 11.0 Seconds (9.4-12.1) 11/28/16 04:57 Consult Discharge Plan - Plan Referrals: Vicente Caballero DO [Primary Care Provider] - 12/11/16 9:45 am
[2016-11-29] MEDS: Temazepam 15 MG CAPSULE PO SCH (22:12)
[2016-11-30] MEDS: *HR* Heparin 5,000 UNIT/ML VIAL SQ SCH ×2 (05:44→17:49)
[2016-11-30] MEDS: *HR* OxyCODONE/APAP 5/325 TABLET PO PRN ×2 (09:35→17:48)
[2016-11-30] MEDS: Multivit/Ca/Min/Fe/FA 1 TAB TABLET PO SCH ×2 (09:37→09:40)
[2016-11-30] MEDS: Cyanocobalamin (B-12) 1,000 MCG TABLET PO SCH (09:37)
[2016-11-30] MEDS: Cholecalciferol (D-3) 1,000 UNIT TABLET PO SCH (09:37)
[2016-11-30] MEDS: Ascorbic Acid 500 MG TABLET PO SCH (09:37)
[2016-11-30] MEDS: Famotidine 20 MG TABLET PO SCH (09:37)
[2016-11-30] MEDS: predniSONE 20 MG TABLET PO SCH (09:37)
[2016-11-30] MEDS: Insulin LISPRO 300 UNITS/3 ML VIAL SQ SCH ×4 (09:44→20:06)
--- NOTE | 2016-11-30 17:54 | Internal Med Progress Note ---
Date of Encounter: 11/30/16 Time of Encounter: 17:53 - Assessment and plan (1) Diabetes Current Visit: Yes Status: Acute Assessment and plan: on ISS Qualifiers: Diabetes mellitus type: type 2 Diabetes mellitus complication status: with unspecified complications Diabetes mellitus chcf insulin use: without intermediate project manager use Qualified Code(s): E11.8 - Type 2 diabetes mellitus with unspecified complications (2) Rheumatoid arthritis Current Visit: Yes Status: Chronic Qualifiers: Rheumatoid arthritis location: unspecified site Rheumatoid factor presence : unspecified presence Qualified Code(s): M06.9 - Rheumatoid arthritis, unspecified (3) Intractable pain Current Visit: Yes Status: Acute Assessment and plan: due to acute compression fracture of Vertebra T6,T12 and L4 She was evaluated by back surgeon May get benefit with Vertbroplasty .. But pt does not wanted to for any procedure now She opted to try PT / OT and Pain medication PT / OT on board OT recommend ECF placement Will talk to SW about ECF placement for short term PT / OT Changed anti spasmodics to Flexaril as per Ortho recommendations Cont on short course of PO steroids Prednisone # 3/7 She is at high risk for respiratory compromise with IV narcotics (4) Vertebral compression fracture Current Visit: Yes Status: Acute Assessment and plan: see above Qualifiers: Encounter type: initial encounter Qualified Code(s): M48.50XA - Collapsed vertebra, not elsewhere classified, site unspecified, initial encounter for fracture - Subjective Interval history: Admitted for back pain. Diagnosed with compression fracture. Pain is under control now. Awaiting snf placement. - Constitutional Vitals: Temp Pulse Resp BP Pulse Ox 98.1 F 84 16 115/65 93 11/30/16 16:08 11/30/16 16:08 11/30/16 16:08 11/30/16 16:08 11/30/16 16:08 General appearance: Present: A&O X 3, pleasant, no acute distress, loss of weight, answers questions appropriately - Head Head exam: Present: atraumatic, normocephalic - Eye Eye exam: Present: PERRL, conjuntiva pink, sclera anicteric Pupils: Present: PERRL - Neck Neck exam general surgery: Present: supple, trachea midline. Absent: lymphadenopathy - Respiratory Respiratory exam: Present: CTAB. Absent: accessory muscle use, rales, rhonchi, wheezes - Cardiovascular Cardiovascular exam: Present: RRR, +S1, +S2. Absent: diastolic murmur, gallop, rubs, systolic murmur - GI/Abdominal GI/Abdominal exam: Present: normal bowel sounds, soft, no peritoneal signs. Absent: distended, tenderness - Extremities Exam Extremities exam: Present: warm, radial pulses palpable and symmetrical. Absent : calf tenderness, cyanotic, pedal edema - Neurological Exam Neurological exam: Present: CN II-XII intact, oriented X3, no focal deficits. Absent: pronater drift, facial droop, speech deficit - Skin Skin exam: Present: dry, intact Internal Medicine: Result - Labs CBC & Chem 7: 11/28/16 04:57 11/28/16 04:57 - ABG Interpretation ABG results: PT/INR, D-dimer PT 11.0 Seconds (9.4-12.1) 11/28/16 04:57 Consult Discharge Plan - Plan Referrals: Dale Davis DO [Partnered Physician] - Vicente Caballero DO [Primary Care Provider] - 12/11/16 9:45 am
[2016-11-30] MEDS: Temazepam 15 MG CAPSULE PO SCH (22:31)
[2016-12-01] MEDS: *HR* Heparin 5,000 UNIT/ML VIAL SQ SCH (06:02)
[2016-12-01] MEDS: Cyanocobalamin (B-12) 1,000 MCG TABLET PO SCH (09:14)
[2016-12-01] MEDS: Multivit/Ca/Min/Fe/FA 1 TAB TABLET PO SCH ×2 (09:14)
[2016-12-01] MEDS: predniSONE 20 MG TABLET PO SCH (09:14)
[2016-12-01] MEDS: Cholecalciferol (D-3) 1,000 UNIT TABLET PO SCH (09:14)
[2016-12-01] MEDS: Insulin LISPRO 300 UNITS/3 ML VIAL SQ SCH ×2 (09:15→12:41)
[2016-12-01] MEDS: Famotidine 20 MG TABLET PO SCH (09:15)
[2016-12-01] MEDS: Ascorbic Acid 500 MG TABLET PO SCH (09:20)
[2016-12-01 10:53] VITALS: BP 133/77
--- NOTE | 2016-12-01 14:25 | Discharge Summary ---
Date of Encounter: 12/01/16 Time of Encounter: 14:23 - Discharge Diagnosis (1) Vertebral compression fracture Priority: Primary Status: Acute Qualifiers: Encounter type: initial encounter Qualified Code(s): M48.50XA - Collapsed vertebra, not elsewhere classified, site unspecified, initial encounter for fracture (2) Intractable pain Priority: Secondary Status: Acute (3) Rheumatoid arthritis Priority: Secondary Status: Chronic Qualifiers: Rheumatoid arthritis location: unspecified site Rheumatoid factor presence : unspecified presence Qualified Code(s): M06.9 - Rheumatoid arthritis, unspecified (4) Diabetes Priority: Secondary Status: Acute Qualifiers: Diabetes mellitus type: type 2 Diabetes mellitus complication status: with unspecified complications Diabetes mellitus penitentiary insulin use: without penitentiary use Qualified Code(s): E11.8 - Type 2 diabetes mellitus with unspecified complications - Discharge Medications Prescriptions: Oxycodone HCl/Acetaminophen [Percocet 5-325 mg Tablet] 1 each PO Q4H PRN #12 tab PRN Reason: Pain Temazepam [Restoril] 15 mg PO HS #3 tab Home Medications: Ascorbic Acid [Vitamin C] 1,000 mg PO DAILY 11/03/15 [History] Cholecalciferol (D-3) [Vitamin D] 5,000 unit PO DAILY 11/03/15 [History] Multivit-Min/Iron/Folic/Lutein [Centrum Silver Women Tablet] 1 tab PO DAILY [History] Raloxifene [Evista] 60 mg PO DAILY 11/03/15 [History] Ranitidine HCl [Heartburn Relief] 150 mg PO BID 11/03/15 [History] Vit C/E/Zn/Coppr/Lutein/Zeaxan [Preservision Areds 2 Softgel] 2 cap PO DAILY [History] Calcium Carbonate/Vitamin D3 [Calcium 600+D Softgel] 2 each PO DAILY 09/02/16 [ History] Cyanocobalamin (Vitamin B-12) [Vitamin B-12] 500 mcg PO DAILY 09/02/16 [History] Fish Oil/Dha/Epa [Fish Oil 1,200 mg Fish Oil] 1 each PO DAILY 09/02/16 [History] Golimumab (Simponi ARIA) [Simponi Aria (For Outpatient INFUSION)] 50 mg IV Q8W 09/02/16 [History] Vitamin E (Dl,Tocopheryl Acet) [Vitamin E] 400 unit PO DAILY 09/02/16 [History] Azathioprine [Imuran] 50 mg PO DAILY 11/26/16 [History] Baclofen [Lioresal] 5 - 10 mg PO TID PRN 11/26/16 [History] metFORMIN [Glucophage] 500 mg PO QPM 11/26/16 [History] predniSONE [PredniSONE] 20 mg PO DAILY 11/26/16 [History] Docusate [Colace] 100 mg PO BID 12/01/16 [Rx] Heparin 5,000 unit SQ Q12HCO vial 12/01/16 [Rx] Oxycodone HCl/Acetaminophen [Percocet 5-325 mg Tablet] 1 each PO Q4H PRN #12 tab 12/01/16 [Rx] Temazepam [Restoril] 15 mg PO HS #3 tab 12/01/16 [Rx] Allergies/Adverse Reactions: 3 Allergy/AdvReac Type Severity Reaction Status Date / Time Penicillins [PCN] Allergy Mild Hives Verified 11/26/16 15:29 Date of admission: 11/28/16 15:09 Primary care physician: Vicente Caballero Discharging clinician: Bhavana Wade Anticipated date of discharge: 12/01/16 - Patient Status Disposition: Transfer SNF Condition: Good Overall status at discharge: patient is progressing back to baseline - Discharge Instructions Follow Up With: Dale Davis DO [Partnered Physician] - Vicente Caballero DO [Primary Care Provider] - 12/11/16 9:45 am - Diet and Activity Activity: as per physical therapy Diet: advance to your usual diet, diabetic diet, low fat, low cholesterol, low salt diet Hospital course: Ms. Miranda is a 76 year old female - Time Spent with Patient Total time spent providing and/or coordinating discharge services: - Constitutional Vitals: Temp Pulse Resp BP Pulse Ox 97.6 F 85 15 133/77 96 12/01/16 10:51 12/01/16 10:51 12/01/16 10:51 12/01/16 10:51 12/01/16 10:51 General appearance: Present: A&O X 3, pleasant, no acute distress, loss of weight, answers questions appropriately - Head Head exam: Present: atraumatic, normocephalic - Eye Eye exam: Present: PERRL, conjuntiva pink, sclera anicteric Pupils: Present: PERRL - Neck Neck exam general surgery: Present: supple, trachea midline. Absent: lymphadenopathy - Respiratory Respiratory exam: Present: CTAB. Absent: accessory muscle use, rales, rhonchi, wheezes - Cardiovascular Cardiovascular exam: Present: RRR, +S1, +S2. Absent: diastolic murmur, gallop, rubs, systolic murmur - GI/Abdominal GI/Abdominal exam: Present: normal bowel sounds, soft, no peritoneal signs. Absent: distended, tenderness - Extremities Exam Extremities exam: Present: warm, radial pulses palpable and symmetrical. Absent : calf tenderness, cyanotic, pedal edema - Neurological Exam Neurological exam: Present: CN II-XII intact, oriented X3, no focal deficits. Absent: pronater drift, facial droop, speech deficit - Skin Skin exam: Present: dry, intact
--- NOTE | 2016-12-01 14:34 | Physician Discharge Referral ---
ExtendedCare Referral Info Transfer To: SNF Provider in Charge: maggy Provider in Charge after Transfer: PCP Institutional Level of Care: Skilled - Diagnosis (1) Vertebral compression fracture Status: Acute (2) Intractable pain Status: Acute (3) Rheumatoid arthritis Status: Chronic (4) Diabetes Status: Acute - Transfer Medications Prescriptions: Oxycodone HCl/Acetaminophen [Percocet 5-325 mg Tablet] 1 each PO Q4H PRN #12 tab PRN Reason: Pain Temazepam [Restoril] 15 mg PO HS #3 tab Home Medications: Ascorbic Acid [Vitamin C] 1,000 mg PO DAILY 11/03/15 [History] Cholecalciferol (D-3) [Vitamin D] 5,000 unit PO DAILY 11/03/15 [History] Multivit-Min/Iron/Folic/Lutein [Centrum Silver Women Tablet] 1 tab PO DAILY [History] Raloxifene [Evista] 60 mg PO DAILY 11/03/15 [History] Ranitidine HCl [Heartburn Relief] 150 mg PO BID 11/03/15 [History] Vit C/E/Zn/Coppr/Lutein/Zeaxan [Preservision Areds 2 Softgel] 2 cap PO DAILY [History] Calcium Carbonate/Vitamin D3 [Calcium 600+D Softgel] 2 each PO DAILY 09/02/16 [ History] Cyanocobalamin (Vitamin B-12) [Vitamin B-12] 500 mcg PO DAILY 09/02/16 [History] Fish Oil/Dha/Epa [Fish Oil 1,200 mg Fish Oil] 1 each PO DAILY 09/02/16 [History] Golimumab (Simponi ARIA) [Simponi Aria (For Outpatient INFUSION)] 50 mg IV Q8W 09/02/16 [History] Vitamin E (Dl,Tocopheryl Acet) [Vitamin E] 400 unit PO DAILY 09/02/16 [History] Azathioprine [Imuran] 50 mg PO DAILY 11/26/16 [History] Baclofen [Lioresal] 5 - 10 mg PO TID PRN 11/26/16 [History] metFORMIN [Glucophage] 500 mg PO QPM 11/26/16 [History] predniSONE [PredniSONE] 20 mg PO DAILY 11/26/16 [History] Docusate [Colace] 100 mg PO BID 12/01/16 [Rx] Heparin 5,000 unit SQ Q12HCO vial 12/01/16 [Rx] Oxycodone HCl/Acetaminophen [Percocet 5-325 mg Tablet] 1 each PO Q4H PRN #12 tab 12/01/16 [Rx] Temazepam [Restoril] 15 mg PO HS #3 tab 12/01/16 [Rx] Allergies/Adverse Reactions: 3 Allergy/AdvReac Type Severity Reaction Status Date / Time Penicillins [PCN] Allergy Mild Hives Verified 11/26/16 15:29 - Respiratory Orders Smoking Cessation: Smoking cessation has been advised. For more information, call the [place] Tobacco Quit Line at 4-629-DLJK-NOW. - Rehabiliation Orders Rehab Orders: ROM Exercises, Evaluation for Physical Therapy - Treatments Skin tear care topically daily PRN per policy, May check for fecal impaction rectally daily PRN, Fleet enema rectally every other day PRN cleansing purposes CERTIFICATION: I certify that the transfer of the above named patient to an Extended Care Facility is necessary for the continuing treatment of the diagnosis listed. The above information is true and accurate reflection of patient's current condition. Confidential - Redisclosure prohibited without a patient's written consent.
[2016-12-01] MEDS: *HR* OxyCODONE/APAP 5/325 TABLET PO PRN (15:54)
[2016-12-05] MEDS ORDERED: predniSONE 5 MG TABLET PO SCH (09:00)
== END 2016-12-01 16:19 | DRG 552 ==
LOC: EMEROO 15:26 → 3BNU 15:26 → SUATTDRO 21:17 → 3BNU 22:14
PROVIDERS: ADMIT Family Medicine; ATTEND Internal Medicine

== ENCOUNTER 2017-12-18 08:40 | Inpatient (IN) ==
[2017-12-18] MEDS ORDERED: Isovue-370 500 ML INFUS..BTL IV ONE (08:55)
--- NOTE | 2017-12-18 09:06 | Emergency Department Note ---
Disposition Clinical Impression: Acute respiratory distress, Hypoxemia Disposition: Admitted As Inpatient Condition: Fair SOB HPI - General Chief Complaint: ED Shortness of Breath/Dyspnea Stated Complaint: KEVIN/Low 02/CP Time Seen by Provider: 12/18/17 08:41 Source: patient Limitations: no limitations Nursing Notes Reviewed: Yes Vital Signs Reviewed: Yes - History of Present Illness I did see the patient immediately upon arrival to the emergency department and the patient was sent here from primary care because of shortness of breath, chest pain, tachycardia with a heart rate of 110 and oxygen saturation on room air of 84%. She has a history of rheumatoid arthritis and did have a recent increase in her cardiac exam however she does not have any history of heart or lung problems. Her respiratory rate at the primary care office this morning was 32. She does have shortness of breath which she says has been present for the last 3 days and began gradually and is worse with exertion but denies any mid chest pain. She does have some left lower chest pain and flank pain after she strained her back one month ago and said this is worse with range of motion but there is no pleuritic chest pain. She tells me her primary care physician thought there was swelling of the lower extremities but she has not appreciated swelling of the lower extremities herself. Social history: No smoking, alcohol , drugs - Related Data Home Medications Medication Instructions Recorded Confirmed Ascorbic Acid [Vitamin C] 1,000 mg PO DAILY 11/03/15 11/26/16 Cholecalciferol (D-3) [Vitamin D] 5,000 unit PO DAILY 11/03/15 11/26/16 Multivit-Min/Iron/Folic/Lutein 1 tab PO DAILY 11/03/15 11/26/16 [Centrum Silver Women Tablet] Raloxifene [Evista] 60 mg PO DAILY 11/03/15 11/26/16 Ranitidine HCl [Heartburn Relief] 150 mg PO BID 11/03/15 11/26/16 Vit C/E/Zn/Coppr/Lutein/Zeaxan 2 cap PO DAILY 11/03/15 11/26/16 [Preservision Areds 2 Softgel] Calcium Carbonate/Vitamin D3 2 each PO DAILY 09/02/16 11/26/16 [Calcium 600+D Softgel] Cyanocobalamin (Vitamin B-12) 500 mcg PO DAILY 09/02/16 11/26/16 [Vitamin B-12] Fish Oil/Dha/Epa [Fish Oil 1,200 1 each PO DAILY 09/02/16 11/26/16 mg Fish Oil] Golimumab (Simponi ARIA) [Simponi 50 mg IV Q8W 09/02/16 11/26/16 Aria (For Outpatient INFUSION)] Vitamin E (Dl,Tocopheryl Acet) 400 unit PO DAILY 09/02/16 11/26/16 [Vitamin E] Azathioprine [Imuran] 50 mg PO DAILY 11/26/16 Baclofen [Lioresal] 5 - 10 mg PO TID PRN 11/26/16 11/26/16 metFORMIN [Glucophage] 500 mg PO QPM 11/26/16 11/26/16 predniSONE [PredniSONE] 20 mg PO DAILY 11/26/16 11/26/16 Previous Rx's Medication Instructions Recorded Docusate [Colace] 100 mg PO BID 12/01/16 Oxycodone HCl/Acetaminophen 1 each PO Q4H PRN #12 tab 12/01/16 [Percocet 5-325 mg Tablet] Temazepam [Restoril] 15 mg PO HS #3 tab 12/01/16 Lidocaine Patch [Lidoderm 5% patch] 1 each TP DAILY PRN #10 adh..patch 11/10/17 Allergies Allergy/AdvReac Type Severity Reaction Status Date / Time Penicillins [PCN] Allergy Mild Hives Verified 11/26/16 15:29 metformin Allergy Hives Verified 11/10/17 19:33 Review of Systems: Constitutional: No fever Vision: No blurred vision ENT: No rhinorrhea Respiratory: No cough Allergic: No allergies : No blood in urine GI: No blood in stool Hematologic: No bruising Dermatologic: No skin rash Musculoskeletal: No pain in the extremities Neuro: No numbness of the extremities Past Medical History - Past Medical History Medical history: Reports: arthritis, atrial fibrillation, diabetes, osteoporosis , other Surgical history: Reports: Psychiatric history: Reports: no psych history SENIOR SYSTEMS ADMINISTRATOR history: Reports: no SENIOR SYSTEMS ADMINISTRATOR history - Social History Smoking Status: Never smoker Smokeless Tobacco Status: No Alcohol use: Reports: none Drug use: Reports: none Physical Exam CONSTITUTIONAL: Alert and oriented X3, well-nourished, well appearing, in Moderate respiratory distress HEAD: Normocephalic; atraumatic. EYES: PERRL, no scleral icterus. NOSE: The nose is normal in appearance without rhinorrhea RESP: Normal chest excursion with respiration; breath sounds clear and equal bilaterally; no wheezes, rhonchi, or rales CARD: Regular rhythm, without murmurs, rub or gallop ABD: Non-distended; non-tender, soft,without rigidity, rebound or guarding SKIN: Normal for age and race; warm and dry; no apparent lesions - General Limitations: no limitations General appearance: alert, in distress Course Vital Signs Temperature 97.9 F 12/18/17 08:44 Pulse Rate 104 12/18/17 08:44 Respiratory Rate 32 12/18/17 08:44 Blood Pressure 131/73 12/18/17 08:44 O2 Sat by Pulse Oximetry 97 12/18/17 08:44 Temperature 97.9 F 12/18/17 08:44 Pulse Rate 68 12/18/17 10:18 Respiratory Rate 20 12/18/17 10:18 Blood Pressure 113/52 12/18/17 10:18 O2 Sat by Pulse Oximetry 96 12/18/17 10:18 Oxygen Delivery Oxygen Delivery Nasal Cannula Shortness of Breath/Dyspnea - [facility] Narrative Medical decision making narrative: Patient is quite tachypnic but no diaphoresis, color change, abnormal lung sounds and she does not have any lower extremity edema on my exam. She does not have cardiac history. I did review her EKG which shows sinus tachycardia with a rate of 101 without acute ischemic change or evidence of significant arrhythmia. She does have QRS segments greater than 5 mm in both lead 1 and aVL so this does not appear to be low voltage on EKG. There is some artifact on the EKG. Congestive heart failure as well as STEMI are not present based on my clinical evaluation. Pulmonary embolism is a strong possibility I did review her past creatinine levels and she has had about 10 levels over the last several years including most recently at the end of October which were normal so the patient will go for CTA. Will not wait for labs here today as I would expect the creatinine level will be normal and either way the patient does need to have a pulmonary embolism further excluded. I did review the chest x-ray which did not show acute abnormality 908 I did go back and check on the patient and she states her symptoms are resolved at this time. Her oxygen saturation on 2 L nasal cannula 98%. I did call over to radiology to have the CTA done and we will await these results 0919 - Medical Records Medical records reviewed: Yes I reviewed the patient's medical records. - Lab Data Result diagrams: 12/18/17 09:01 12/18/17 09:01 Lab Results 12/18/17 12/18/17 12/18/17 Range/Units 09:01 09:01 09:01 WBC 10.9 (4.3-11.1) K/mcL RBC 4.91 (3.82-4.97) M/mcL Hgb 15.3 (11.5-15.4) g/dL Hct 47.2 H (35.3-44.9) % MCV 96.1 (83.0-100.0) fL MCH 31.2 (28.0-33.3) pg MCHC 32.4 (31.6-35.5) g/dL RDW 14.0 (11.5-14.5) % Plt Count 237 (140-400) K/mcL MPV 10.3 (9.4-12.4) fL Immature Gran % 0.6 (0-4) % Seg Neutrophils % 78.8 % Lymphocytes % 8.9 % Monocytes % 9.6 % Eosinophils % 1.7 % Basophils % 0.4 % Neutrophils # 8.6 (1.6-8.9) K/mcL Lymphocytes # 1.0 (0.6-4.6) K/mcL Monocytes # 1.1 (0.0-1.3) K/mcL Eosinophils # 0.2 (0.0-0.6) K/mcL Basophils # 0.0 (0.0-0.2) K/mcL Sodium 139 (136-145) mEq/L Potassium 4.1 (3.5-5.1) mEq/L Chloride 105 (98-107) mEq/L Carbon Dioxide 27 (23-29) mEq/L BUN 15 (8-23) mg/dL Creatinine 0.80 (0.60-1.20) mg/dL Est GFR ( Amer) > 60 (> 60) Est GFR (Non-Af Amer) > 60 (> 60) BUN/Creatinine Ratio 19 (6-26) Glucose 63 L (70-105) mg/dL Calculated Osmolality 287 (280-300) Calcium 9.3 (8.6-10.3) mg/dL Troponin I < 0.03 (< 0.04) ng/mL B-Natriuretic Peptide 62 (Less than 100) pg/mL - Radiology Data Radiology results reviewed: Yes I reviewed the patient's radiology results.
[2017-12-18 09:13] LABS: Basophils % 0.4 %; Eosinophils # 0.2 K/mcL (0.0-0.6); Eosinophils % 1.7 %; Hematocrit 47.2 % (35.3-44.9); Hemoglobin 15.3 g/dL (11.5-15.4); Immature Granulocytes % 0.6 % (0-4); Lymphocytes % 8.9 %; Mean Corpuscular HGB Conc 32.4 g/dL (31.6-35.5); Mean Corpuscular Hemoglobin 31.2 pg (28.0-33.3); Mean Corpuscular Volume 96.1 fL (83.0-100.0); Mean Platelet Volume 10.3 fL (9.4-12.4); Monocytes # 1.1 K/mcL (0.0-1.3); Monocytes % 9.6 %; Neutrophils # 8.6 K/mcL (1.6-8.9); Platelet Count 237 K/mcL (140-400); Red Blood Count 4.91 M/mcL (3.82-4.97); Segmented Neutrophils % 78.8 %
[2017-12-18 09:34] LABS: BUN/Creatinine Ratio 19 (6-26); Blood Urea Nitrogen 15 mg/dL (8-23); Calcium 9.3 mg/dL (8.6-10.3); Carbon Dioxide 27 mEq/L (23-29); Chloride 105 mEq/L (98-107); Glucose 63 mg/dL (70-105); Osmolality,Calculated 287 (280-300); Potassium 4.1 mEq/L (3.5-5.1); Sodium 139 mEq/L (136-145); eGFR For Non-African Americans > 60 (> 60)
[2017-12-18 09:35] LABS: Troponin I < 0.03 ng/mL (< 0.04)
[2017-12-18] MEDS ORDERED: Naloxone 0.4 MG/ML INJ IVP PRN (12:12)
--- NOTE | 2017-12-18 12:16 | Internal Med History&Physical ---
Date of Encounter: 12/18/17 Time of Encounter: 12:00 Internal Medicine - H&P: HPI Chief complaint: Shortness of breath Admitted From: Emergency Dept Plans for Post Hospital Care: Home History of present illness: Ms. Miranda is a 77 year old female patient with history of diabetes, rheumatoid arthritis who presented to the ER from her primary care provider's office because of hypoxia. Patient was in to see her PCP for follow-up appointment regarding exertional dyspnea. Patient has been having dyspnea with exertion for the past year. However over the past 2-3 days it has become worse. She had seen her PCP one week back and some tests were ordered and she was back in his office today for follow-up of this. She denies any chest pain or palpitations. She does have significant spinal arthritic changes and compression fractures in the past causing her to have chronic back pain but she also lifted a heavy laundry bag recently and has been having pain on the lateral lower ribs. She was found to be hypoxic with sats of 84% on arrival to the ER here. She was also tachycardic with heart rate of 110/m. She denies any chest pain. No palpitations. No history of COPD or asthma. Nonsmoker. She feels good as long as she is resting. But any activity makes her short of breath. She denies any orthopnea. Her daughter did note that she had some ankle edema bilaterally. Past Med Surg Social Fam HX - Past Medical History Attestation: Yes The following information was validated with the patient. Source: patient Medical history: arthritis, atrial fibrillation, diabetes, osteoporosis, other Additional medical history: breast cancer Psychiatric history: no psych history - Past Surgical History Surgical History: Additional surgical history: breast sx - 40 years ago. abdominal d/t scar tissue on bowels. back - Social History Smoking Status: Never smoker Smokeless Tobacco Status: No Alcohol use: none Drug use: none - Family History Father Living Status: Hx Family Cancer: Yes Mother Living Status: Hx Family Cancer: Yes Internal Medicine - H&P: Meds Ascorbic Acid [Vitamin C] 1,000 mg PO DAILY 11/03/15 [History] Cholecalciferol (D-3) [Vitamin D] 5,000 unit PO DAILY 11/03/15 [History] Multivit-Min/Iron/Folic/Lutein [Centrum Silver Women Tablet] 1 tab PO DAILY [History] Ranitidine HCl [Heartburn Relief] 150 mg PO BID 11/03/15 [History] Calcium Carbonate/Vitamin D3 [Calcium 600+D Softgel] 2 each PO DAILY 09/02/16 [ History] Cyanocobalamin (Vitamin B-12) [Vitamin B-12] 500 mcg PO DAILY 09/02/16 [History] Fish Oil/Dha/Epa [Fish Oil 1,200 mg Fish Oil] 1 each PO DAILY 09/02/16 [History] Vitamin E (Dl,Tocopheryl Acet) [Vitamin E] 400 unit PO DAILY 09/02/16 [History] Acetaminophen w/Cod 300-30 mg [Tylenol w/Codeine #3] 1 tab PO Q6H PRN 12/18/17 [ History] Celecoxib [Celebrex] 200 mg PO DAILY 12/18/17 [History] Denosumab [Prolia (For Outpatient Infusion)] 60 mg SQ Q6M 12/18/17 [History] Duloxetine HCl [Cymbalta] 60 mg PO DAILY 12/18/17 [History] Glimepiride [Amaryl] 4 mg PO DAILY 12/18/17 [History] Pantoprazole Sodium [Protonix] 40 mg PO DAILY 12/18/17 [History] Pioglitazone HCl [Actos] 15 mg PO DAILY 12/18/17 [History] SitaGLIPtin [Januvia] 100 mg PO DAILY 12/18/17 [History] dilTIAZem HCl [Diltiazem HCl] 120 mg PO BID 12/18/17 [History] predniSONE [PredniSONE] 5 mg PO DAILY 12/18/17 [History] riTUXimab [Rituxan] 100 mg IV Q6M 12/18/17 [History] 3 Allergy/AdvReac Type Severity Reaction Status Date / Time Penicillins [PCN] Allergy Mild Hives Verified 11/26/16 15:29 metformin Allergy Hives Verified 11/10/17 19:33 All Systems PM: A 10-system review of systems was performed and is negative for pertinent findings except as documented above in the HPI. - Constitutional Constitutional: no chills, no fever(s), no night sweats - EENT Eyes: no change in vision, no discharge, no pain, no photophobia Ears: no ear discharge, no ear pain, no tinnitus Nose, mouth and throat: no dysphagia, no nasal discharge, no neck pain, no sore throat - Cardiovascular Cardiovascular ROS IM: dyspnea on exertion, edema, no chest pain, no diaphoresis , no dyspnea, no lightheadedness, no palpitations, no syncope - Respiratory Respiratory: dyspnea on exertion, no cough, no dyspnea, no wheezing, no excessive phlegm production - Gastrointestinal Gastrointestinal: no abdominal pain, no diarrhea, no hematemesis, no hematochezia, no melena, no nausea, no vomiting - Genitourinary Genitourinary: no change in urinary stream, no dysuria, no flank pain, no hematuria - Integumentary Integumentary IM: no rash, no unusual bruising - Neurological Neurological ROS: no confusion, no convulsions, no focal weakness, no numbness, no tingling, no tremor(s) - Constitutional Vitals: Temp Pulse Resp BP Pulse Ox 97.9 F 68 20 113/52 96 12/18/17 08:44 12/18/17 10:18 12/18/17 10:18 12/18/17 10:18 12/18/17 10:18 General appearance: Present: cooperative, A&O X 3, answers questions appropriately Exam: . - Respiratory Respiratory exam: Present: decreased breath sounds (at both bases). Absent: accessory muscle use, rales, rhonchi, wheezes - Cardiovascular Cardiovascular exam: Present: RRR, +S1, +S2. Absent: diastolic murmur, gallop, rubs, systolic murmur - GI/Abdominal GI/Abdominal exam: Present: normal bowel sounds, soft, no peritoneal signs. Absent: distended, tenderness - Extremities Exam Extremities exam: Present: pedal edema (ankle edema bilaterally), warm, radial pulses palpable and symmetrical. Absent: calf tenderness, cyanotic - Neurological Exam Neurological exam: Present: CN II-XII intact, oriented X3, no focal deficits. Absent: facial droop, speech deficit - Skin Skin exam: Present: dry, intact Internal Med - H&P Results - Labs CBC & Chem 7: 12/18/17 09:01 12/18/17 09:01 - Assessment and plan (1) Hypoxemia Current Visit: Yes Status: Acute Assessment and plan: Patient was hypoxic on presentation. Currently she is saturating well on 2 L/ m. During my interview, her oxygen saturations improved when she took deep breaths. Most likely could be due to basilar atelectasis. However she also describes exertional dyspnea. Will get 2-D echocardiogram. Check for O2 qualification. (2) Exertional dyspnea Current Visit: Yes Status: Acute Assessment and plan: Patient presenting with symptoms of exertional dyspnea worsening over the past 2 -3 days. Will get 2-D echocardiogram. BNP is normal. She does have bibasilar atelectasis which could also be causing her symptoms. Will order incentive spirometry. (3) Diabetes Current Visit: Yes Status: Chronic Assessment and plan: Monitor blood sugars. Patient was hypoglycemic on arrival. Place on diabetic diet. Monitor blood sugars closely. Qualifiers: Diabetes mellitus type: type 2 Diabetes mellitus escrow secretary insulin use: without escrow secretary use Diabetes mellitus complication status: with unspecified complications Qualified Code(s): E11.8 - Type 2 diabetes mellitus with unspecified complications (4) DVT prophylaxis Current Visit: Yes Status: Acute Assessment and plan: With SCDs - Time Spent With Patient Total time spent is greater than 50% in coordination of care (as documented) at patient's floor/unit and/or counseling patient:
[2017-12-18] MEDS ORDERED: Dextrose Gel 15 GM/37.5 ML TUBE PO PRN ×2 (12:33)
[2017-12-18] MEDS ORDERED: D5% in Water 1,000 ML IVC PRN (12:33)
[2017-12-18] MEDS ORDERED: *HR* Dextrose 50 % in Water (Syg) 50 ML SYRINGE IVP PRN (12:33)
[2017-12-18] MEDS: Insulin LISPRO 300 UNITS/3 ML VIAL SQ SCH (16:00)
[2017-12-18] MEDS: Diltiazem CD (24hr) 240 MG CAPSULE PO SCH (21:23)
[2017-12-19] MEDS: Ascorbic Acid 500 MG TABLET PO SCH (07:22)
[2017-12-19] MEDS: Cyanocobalamin (B-12) 1,000 MCG TABLET PO SCH (07:22)
[2017-12-19] MEDS: Celecoxib 200 MG CAPSULE PO SCH (07:22)
[2017-12-19] MEDS: predniSONE 5 MG TABLET PO SCH (07:22)
[2017-12-19] MEDS: Cholecalciferol (D-3) 1,000 UNIT TABLET PO SCH (07:23)
[2017-12-19] MEDS: Insulin LISPRO 300 UNITS/3 ML VIAL SQ SCH ×3 (07:40→20:02)
[2017-12-19] MEDS: *HR* Acetaminophen w/Cod 300-30 mg 1 TAB TABLET PO PRN ×2 (07:40→20:12)
[2017-12-19] MEDS: FISH OIL PO SCH (07:41)
[2017-12-19] MEDS: DHA PO SCH (07:41)
[2017-12-19] MEDS: EPA PO SCH (07:41)
--- NOTE | 2017-12-19 11:29 | Internal Med Progress Note ---
Hospitalist Progress Note - Encounter Date of Encounter: 12/19/17 Time of Encounter: 11:27 - Subjective Interval History: Patient seen and examined at bedside. Patient no acute overnight events. Patient remains on supplemental oxygen to maintain pulse oximetry over 90%. Continue shortness of breath especially with exertion. Patient states that she has had pain in her rib cage since moving heavy trash bag recently. And has multiple compression fractures. Patient denies any chest pain, nausea, vomiting , diarrhea. Explained at length that this could be due to atelectasis and recs bleed with his to the patient also experienced could be progression of her rheumatoid arthritis involving her lungs. Encouraged ambulation today and incentive spirometry use. Explained to patient she will need to follow up with pulmonology as an outpatient have PFTs done and evaluation for possible pulmonary fibrosis. - Exam Vitals: Temp Pulse Resp BP Pulse Ox 97.9 F 92 16 119/69 94 12/19/17 11:01 12/19/17 11:01 12/19/17 11:01 12/19/17 11:01 12/19/17 11:01 Exam: Constitutional: No acute distress, Alert Psych: AAO x 3 HEENT: NCAT, EOMI Neck: supple, no JVD Cardio: regular rate and rhythm, +s1s2, no murmurs/rubs/gallops, no JVD Resp: Dry crackles in bases, good air entry, no acc muscle use Abd: soft, non tender/non distended, positive bowel sounds, no gaurding/reboud/ ridgitity Extremities: no clubbing/cyanosis/edema appreciated Neuro: no focal deficits appreciated - Assessment and Plan (1) Hypoxemia Current Visit: Yes Status: Acute Assessment and Plan: Patient with hypoxemia that appears to be progressing -Stable on 2 L nasal cannula adequate pulse oximetry -Due to the patient's compression fractures and rib pain suspect atelectasis playing a role in her hypoxemia -However she does have rheumatoid arthritis with dry crackles on examination this could be early pulmonary fibrosis from progression of her rheumatoid arthritis -Continue supplemental oxygen will likely need home oxygen set up prior to discharge -Encouraged ambulation and frequent at times per hour to use today -Perform 6 minute walk test and anticipate discharge tomorrow with supplemental home oxygen -We will make appointment for outpatient pulmonology follow-up for PFTs -Need to follow-up with rheumatology to have her rheumatoid markers followed to ensure that her rheumatoid is not worsening on her twice yearly Rituxan -CTA and echocardiogram unremarkable (2) Exertional dyspnea Current Visit: Yes Status: Acute Assessment and Plan: -No heart failure on history or exam -Likely secondary to atelectasis with possible progression of her RA -Suspect possible component of pulmonary fibrosis -Patient reports history of "lung issue "after methotrexate in past but never followed up with pulmonology -Continue supplemental oxygen and encourage ablation in the senna spirometry use (3) Diabetes Current Visit: Yes Status: Chronic Assessment and Plan: -Diabetic diet -monitor Accu-Cheks Code(s): E11.9 - Type 2 diabetes mellitus without complications SNOMED Code(s) : 63204721 (4) DVT prophylaxis Current Visit: Yes Status: Acute Assessment and Plan: -Start subcutaneous heparin DVT Prophylaxis: -sq heparin - Summary of Assessment and Plan Summary of Assessment and Plan: Continue simvastatin spirometry and encouraged frequent ambulation -We will need to obtain 6 minute walk test prior to discharge -We will likely need home oxygen set up prior to discharge -[place] to make appointment for pulmonology follow-up for outpatient PFTs and evaluation for possible pulmonary fibrosis -Follow up outpatient with rheumatology in regards to her rheumatoid arthritis -Anticipate discharge in am - Time Spent with Patient Total time spent is greater than 50% in coordination of care (as documented) at patient's floor/unit and/or counseling patient: 25 - 35 minutes Plan of Care Discussed with: patient Internal Medicine: Result - Labs CBC & Chem 7: 12/18/17 09:01 12/18/17 09:01 Labs: Cardiac Enzymes 12/18/17 Range/Units 15:09 Troponin I < 0.03 (< 0.04) ng/mL - Impressions Impressions Echocardiogram 12/18/17 12:13 Impressions: Technically sub-optimal due to poor echocardiographic windows. LVEF 55-60%. Normal LV chamber size, wall thickness and function. Mild left ventricular diastolic dysfunction. Mildly dilated right ventricle with normal function. No significant valvular dysfunction. Consult Discharge Plan - Plan Referrals: Parisa Garcia, MEDICAL NUMERICAL CONTROL OPERATOR [Primary Care Provider] - 12/25/17 1:00 pm (3) Diabetes Qualifiers: Diabetes mellitus type: type 2 Diabetes mellitus longterm insulin use: without longterm use Diabetes mellitus complication status: with unspecified complications Qualified Code(s): E11.8 - Type 2 diabetes mellitus with unspecified complications
[2017-12-19] MEDS: *HR* Heparin 5,000 UNIT/ML VIAL SQ SCH ×2 (13:33→22:24)
--- NOTE | 2017-12-19 17:38 | Electrocardiograph Report ---
[place] [facility] Test Date: 2017-12-18 Pat Name: Sanjuana Miranda Department: [id number] Room: 3B11 Gender: F Cabinet Installer: : [id number] Requested By: Jaya Garcia Order Number: [id number] Reading MD: Bakari Saldana Measurements Intervals [place] Rate: 101 P: 55 RI: 133 QRS: 24 QRSD: 80 T: 53 QT: 318 QTc: 413 Interpretive Statements Sinus tachycardia Probable left atrial enlargement Low voltage, precordial leads Electronically Signed On 12-19-2017 17:37:01 EDT by Bakari Saldana
[2017-12-19] MEDS: Diltiazem CD (24hr) 240 MG CAPSULE PO SCH (20:11)
[2017-12-20] MEDS: *HR* Heparin 5,000 UNIT/ML VIAL SQ SCH (06:16)
[2017-12-20 06:27] LABS: BUN/Creatinine Ratio 20 (6-26); Blood Urea Nitrogen 14 mg/dL (8-23); Calcium 8.7 mg/dL (8.6-10.3); Carbon Dioxide 28 mEq/L (23-29); Chloride 106 mEq/L (98-107); Glucose 110 mg/dL (70-105); Osmolality,Calculated 291 (280-300); Potassium 4.8 mEq/L (3.5-5.1); Sodium 140 mEq/L (136-145); eGFR For Non-African Americans > 60 (> 60)
[2017-12-20 07:31] VITALS: BP 127/67
[2017-12-20] MEDS: Cyanocobalamin (B-12) 1,000 MCG TABLET PO SCH (07:31)
[2017-12-20] MEDS: Insulin LISPRO 300 UNITS/3 ML VIAL SQ SCH (07:31)
[2017-12-20] MEDS: Cholecalciferol (D-3) 1,000 UNIT TABLET PO SCH (07:32)
[2017-12-20] MEDS: predniSONE 5 MG TABLET PO SCH (07:32)
[2017-12-20] MEDS: Celecoxib 200 MG CAPSULE PO SCH (07:32)
[2017-12-20] MEDS: Ascorbic Acid 500 MG TABLET PO SCH (07:32)
[2017-12-20] MEDS: EPA PO SCH (07:33)
[2017-12-20] MEDS: DHA PO SCH (07:33)
[2017-12-20] MEDS: FISH OIL PO SCH (07:33)
--- NOTE | 2017-12-20 09:08 | Discharge Summary ---
- NOTES TO OUTPATIENT PROVIDER Notes to Outpatient Provider: Patient presented from PCP office with complaint of hypoxia. Patient with history of multiple compression fractures breath and lumbar spine related to osteopenia. Patient states that she developed rib pain when bending over after moving trash bag recently. It is believed that the patient's hypoxia is mostly related to atelectasis although she does have dry crackles and rheumatoid arthritis. There is some concern for the development of pulmonary fibrosis. She did require supplemental oxygen. Patient will be discharged on home oxygen given prescription for 1 month supply; per 6 minute walk test results she will be discharged on 2 L continuously at rest and with exertion. Please follow-up to evaluate need for further continuous home oxygen. Patient will be sent home with incentive spirometer and instructed on use for atelectasis; recommend follow-up with rheumatology for her inflammatory markers and pulmonology to establish baseline PFTs and rule out pulmonary fibrosis as a result of her rheumatoid arthritis. Patient will see her primary care physician within one week. Patient will see rheumatology as scheduled appointment in January. Patient stable condition and agreeable to discharge on Friday, December 20 2017. All questions answered. Patient instructed to purchase portable pulse oximetry device and to titrate her oxygen down to lowest required dose to maintain oxygen saturation of 90%. In short the patient should she require more than 3-4 L with exertion or at rest that she should call her primary care physician and/or return to the emergency department for further evaluation. Patient did have CTA which ruled out pulmonary embolism. Date of Encounter: 12/20/17 Time of Encounter: 09:03 - Discharge Diagnosis (1) Hypoxemia Priority: Primary Status: Acute (2) Exertional dyspnea Priority: Secondary Status: Acute (3) Diabetes Priority: Secondary Status: Chronic Qualifiers: Diabetes mellitus type: type 2 Diabetes mellitus detention insulin use: without detention use Diabetes mellitus complication status: with unspecified complications Qualified Code(s): E11.8 - Type 2 diabetes mellitus with unspecified complications Code(s): E11.9 - Type 2 diabetes mellitus without complications SNOMED Code(s) : 67115981 (4) DVT prophylaxis Priority: Secondary Status: Acute Hospital course: Ms. Miranda is a 77 year old female with hx of RA presented with hypoxia. Patient presented from PCP office with complaint of hypoxia. Patient with history of multiple compression fractures breath and lumbar spine related to osteopenia. Patient states that she developed rib pain when bending over after moving trash bag recently. It is believed that the patient's hypoxia is mostly related to atelectasis although she does have dry crackles and rheumatoid arthritis. There is some concern for the development of pulmonary fibrosis. She did require supplemental oxygen. Patient will be discharged on home oxygen given prescription for 1 month supply; per 6 minute walk test results she will be discharged on 2 L continuously at rest and with exertion. Please follow-up to evaluate need for further continuous home oxygen. Patient will be sent home with incentive spirometer and instructed on use for atelectasis; recommend follow-up with rheumatology for her inflammatory markers and pulmonology to establish baseline PFTs and rule out pulmonary fibrosis as a result of her rheumatoid arthritis. Patient will see her primary care physician within one week. Patient will see rheumatology as scheduled appointment in January. Patient stable condition and agreeable to discharge on Friday, December 20 2017. All questions answered. Patient instructed to purchase portable pulse oximetry device and to titrate her oxygen down to lowest required dose to maintain oxygen saturation of 90%. In short the patient should she require more than 3-4 L with exertion or at rest that she should call her primary care physician and/or return to the emergency department for further evaluation. Patient did have CTA which ruled out pulmonary embolism. Discharge discussed with: patient, nurse - Time Spent with Patient Total time spent providing and/or coordinating discharge services: Less than 30 minutes (25) - Discharge Medications Prescriptions: Oxygen 1 each .ROUTE AD #1 each Home Medications: Ascorbic Acid [Vitamin C] 1,000 mg PO DAILY 11/03/15 [History] Cholecalciferol (D-3) [Vitamin D] 5,000 unit PO DAILY 11/03/15 [History] Multivit-Min/Iron/Folic/Lutein [Centrum Silver Women Tablet] 1 tab PO DAILY [History] Ranitidine HCl [Heartburn Relief] 150 mg PO BID 11/03/15 [History] Calcium Carbonate/Vitamin D3 [Calcium 600+D Softgel] 2 each PO DAILY 09/02/16 [ History] Cyanocobalamin (Vitamin B-12) [Vitamin B-12] 500 mcg PO DAILY 09/02/16 [History] Fish Oil/Dha/Epa [Fish Oil 1,200 mg Fish Oil] 1 each PO DAILY 09/02/16 [History] Vitamin E (Dl,Tocopheryl Acet) [Vitamin E] 400 unit PO DAILY 09/02/16 [History] Acetaminophen w/Cod 300-30 mg [Tylenol w/Codeine #3] 1 tab PO Q6H PRN 12/18/17 [ History] Celecoxib [Celebrex] 200 mg PO DAILY 12/18/17 [History] Denosumab [Prolia (For Outpatient Infusion)] 60 mg SQ Q6M 12/18/17 [History] Duloxetine HCl [Cymbalta] 60 mg PO DAILY 12/18/17 [History] Glimepiride [Amaryl] 4 mg PO DAILY 12/18/17 [History] Pantoprazole Sodium [Protonix] 40 mg PO DAILY 12/18/17 [History] Pioglitazone HCl [Actos] 15 mg PO DAILY 12/18/17 [History] SitaGLIPtin [Januvia] 100 mg PO DAILY 12/18/17 [History] dilTIAZem HCl [Diltiazem HCl] 120 mg PO BID 12/18/17 [History] predniSONE [PredniSONE] 5 mg PO DAILY 12/18/17 [History] riTUXimab [Rituxan] 100 mg IV Q6M 12/18/17 [History] Oxygen 1 each .ROUTE AD #1 each 12/20/17 [Rx] Allergies/Adverse Reactions: 3 Allergy/AdvReac Type Severity Reaction Status Date / Time Penicillins [PCN] Allergy Mild Hives Verified 11/26/16 15:29 metformin Allergy Hives Verified 11/10/17 19:33 Date of admission: 12/18/17 11:09 Primary care physician: Parisa Garcia CNP Consults: 12/19/17 01:10 Consult to Home Management Supervisor [CONS] Routine Reason for SW Consult: qualifies for home O2 - Constitutional Vitals: Temp Pulse Resp BP Pulse Ox 97.8 F 83 16 127/67 95 12/20/17 07:18 12/20/17 07:18 12/20/17 07:18 12/20/17 07:18 12/20/17 07:18 General appearance: Present: cooperative, A&O X 3, answers questions appropriately Exam: Constitutional: No acute distress, Alert Psych: AAO x 3 HEENT: NCAT, EOMI Neck: supple, no JVD Cardio: regular rate and rhythm, +s1s2, no murmurs Resp: Dry crackles in bases, good air entry Abd: soft, non tender/non distended, positive bowel sounds Extremities: no clubbing/cyanosis/edema appreciated MSK: mild ttp over left lower rib cage Neuro: no focal deficits appreciated - Patient Status Disposition: Home, Self-Care Condition: Good Functional capacity at discharge: independent ambulation Overall status at discharge: patient is progressing back to baseline - Discharge Instructions Follow Up With: [facility] [Provider Group] (An appointment has been requested. The office will contact you at home to schedule an appointment. ) Parisa Garcia CNP [Primary Care Provider] - 12/25/17 1:00 pm Additional Instructions: Purchase pulse oximetry device to monitor pulse ox and maintain above 90% - Diet and Activity Activity: increase activity as tolerated Diet: advance to your usual diet
== END 2017-12-20 10:31 | disposition home or self-care (01) | DRG 206 ==
LOC: EMEROOARM 08:40 → 3BNU 11:09
PROVIDERS: ADMIT Internal Medicine; ATTEND Internal Medicine

== ENCOUNTER 2018-01-26 22:16 | Inpatient (IN) ==
[2018-01-26] MEDS ORDERED: Ondansetron 4 MG/2 ML VIAL IVP ONE (22:21)
[2018-01-26] MEDS ORDERED: 0.9 % Sodium Chloride 1,000 ML IVC ONE (22:21)
[2018-01-26] MEDS ORDERED: Isovue-370 500 ML INFUS..BTL IV ONE (22:21)
[2018-01-26] MEDS ORDERED: *HR* FentaNYL (PF) 100 MCG/2 ML VIAL IVP ONE ×2 (22:25→23:44)
--- NOTE | 2018-01-26 22:26 | Emergency Department Note ---
Disposition Clinical Impression: Sclerosing mesenteritis, SBO (small bowel obstruction) Disposition: Admitted As Inpatient Condition: Fair Referrals: Parisa Garcia CNP [Primary Care Provider] - Forms: ED Satisfaction Letter, Work/School Release Time of Disposition: 00:52 Abdominal Pain HPI - General Chief Complaint: ED Abdominal Pain Stated Complaint: Abdominal Pain, n/v Time Seen by Provider: 01/26/18 22:20 Source: patient, EMS Mode of arrival: EMS Limitations: no limitations Nursing Notes Reviewed: Yes Vital Signs Reviewed: Yes - History of Present Illness HPI Narrative: Patient is a 77-year-old female with past medical history of diabetes, arthritis, sclerosing mesenteritis that she is treated at [facility] with Rituxan infusions every 6 months. Presents today due to concern for abdominal pain, nausea, vomiting, small bowel suction. Patient states that she was seen about a week ago with abdominal pain or distention, diagnosed with a small bowel obstruction secondary to her sclerosing mesenteritis. She states that she was sent to [facility] for further care. She says that she was told that this was a nonoperable condition, she had NG tube Milka and eventual resolution of her symptoms. She presents today with similar symptoms. She began having abdominal pain prior to arrival, noticed generalized abdominal distention, has vomited multiple times (nonbloody, nonbilious). Denies any diarrhea, constipation, blood in stool, dysuria, hematuria, vaginal bleeding or discharge. Denies any chest pain, shortness of breath. Pain Scale: 10 - Related Data Home Medications Medication Instructions Recorded Confirmed Ascorbic Acid [Vitamin C] 1,000 mg PO DAILY 11/03/15 12/18/17 Cholecalciferol (D-3) [Vitamin D] 5,000 unit PO DAILY 11/03/15 12/18/17 Multivit-Min/Iron/Folic/Lutein 1 tab PO DAILY 11/03/15 12/18/17 [Centrum Silver Women Tablet] Ranitidine HCl [Heartburn Relief] 150 mg PO BID 11/03/15 12/18/17 Calcium Carbonate/Vitamin D3 2 each PO DAILY 09/02/16 12/18/17 [Calcium 600+D Softgel] Cyanocobalamin (Vitamin B-12) 500 mcg PO DAILY 09/02/16 12/18/17 [Vitamin B-12] Fish Oil/Dha/Epa [Fish Oil 1,200 1 each PO DAILY 09/02/16 12/18/17 mg Fish Oil] Vitamin E (Dl,Tocopheryl Acet) 400 unit PO DAILY 09/02/16 12/18/17 [Vitamin E] Acetaminophen w/Cod 300-30 mg 1 tab PO Q6H PRN 12/18/17 12/18/17 [Tylenol w/Codeine #3] Celecoxib [Celebrex] 200 mg PO DAILY 12/18/17 12/18/17 Denosumab [Prolia (For Outpatient 60 mg SQ Q6M 12/18/17 12/18/17 Infusion)] Duloxetine HCl [Cymbalta] 60 mg PO DAILY 12/18/17 12/18/17 Glimepiride [Amaryl] 4 mg PO DAILY 12/18/17 12/18/17 Pantoprazole Sodium [Protonix] 40 mg PO DAILY 12/18/17 12/18/17 Pioglitazone HCl [Actos] 15 mg PO DAILY 12/18/17 12/18/17 SitaGLIPtin [Januvia] 100 mg PO DAILY 12/18/17 12/18/17 dilTIAZem HCl [Diltiazem HCl] 120 mg PO BID 12/18/17 12/18/17 predniSONE [PredniSONE] 5 mg PO DAILY 12/18/17 12/18/17 riTUXimab [Rituxan] 100 mg IV Q6M 12/18/17 12/18/17 Previous Rx's Medication Instructions Recorded Oxygen 1 each .ROUTE AD #1 each 12/20/17 Allergies Allergy/AdvReac Type Severity Reaction Status Date / Time Penicillins [PCN] Allergy Mild Hives Verified 11/26/16 15:29 metformin Allergy Hives Verified 11/10/17 19:33 All systems ED: reviewed and negative except as stated. Constitutional: Denies: fever Cardiovascular: Denies: chest pain Respiratory: Denies: cough, dyspnea Gastrointestinal: Reports: abdominal pain, nausea, vomiting. Denies: diarrhea, constipation, hematemesis, melena, hematochezia Genitourinary: Denies: urgency, dysuria, frequency, hematuria, discharge Neurological: Denies: headache, weakness, numbness, paresthesias Abdominal Pain PMH - Past Medical History Medical history: Reports: arthritis, diabetes, osteoporosis, other Female Surgical History: Reports: , other RABBLE FURNACE TENDER history: Reports: no RABBLE FURNACE TENDER history Psychiatric history: Reports: no psych history - Social History Smoking status: Never smoker Alcohol use: Reports: none Drug use: Reports: none Physical Exam - General Limitations: no limitations General appearance: alert, other (Appears uncomfortable, holding abdomen and moaning in pain) - Head Head exam: atraumatic, normocephalic, normal inspection - Eye Eye exam: Present: normal appearance, PERRL, EOMI - ENT ENT exam: normal exam, normal oropharynx, mucous membranes moist - Neck Neck exam: Present: normal inspection, full ROM, trachea midline - Chest Chest inspection: Present: normal inspection, symmetric chest wall rise - Respiratory Respiratory exam: Present: normal lung sounds bilaterally - Cardiovascular Cardiovascular exam: Present: regular rate, normal rhythm, normal heart sounds - Abdominal Exam Abdominal exam: Present: soft, tenderness (Generalized tenderness ), distention (Generalized distention, tympanic abdomen), hypoactive bowel sounds. Absent: guarding, rebound, rigidity, Taveras's sign, Rovsing's sign, tenderness at McBurney's Point - Extremities Exam Extremities exam: Present: normal inspection, full ROM. Absent: tenderness, pedal edema - Neurological Exam Neurological exam: Present: alert, oriented X3 - Psychiatric Psychiatric exam: Present: normal affect, normal mood - Skin Skin exam: Present: warm, dry, intact, normal color Course Course Narrative: Vital stable this time. Physical exam shows generalized abdominal pain and distention. Tympanic abdomen. Currently concern for bowel obstruction. We will obtain basic labs and CT abdomen pelvis with IV contrast for further assessment. We will give the patient fentanyl and Zofran for pain and nausea control. Once results are back, we will discuss possible admission versus transfer. 00:[address] abdomen and pelvis shows partial versus early complete small bowel obstruction. 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 Patient does have a reported histo ry of sclerosing mesenteritis. We discussed inserting NG tube for decompression. Patient does not want to be transferred to [facility] for further care at this time. She reports that she was told when she was there last week that her condition was not operable. She is requesting to be admitted at this facility for further care. She is agreeable with NG tube placement. We will admit to hospitalist for NG suctioning, pain control, nothing by mouth status. Abdomen/Pelvis CT 01/26/18 22:21 IMPRESSION: 1. 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 Correlate with clinical history. 2. Chronic mild intra and extrahepatic bile duct dilatation without choledocholithiasis evident. Correlate with LFTs; MRCP correlation may be indicated. 3. Bones are osteoporotic with multifocal compression fractures as described. D/ / Elton German / Elton German Interpreting Provider: Elton German Vital Signs Temperature 98.3 F 01/26/18 22:18 Pulse Rate 96 01/26/18 22:18 Respiratory Rate 18 01/26/18 22:18 Blood Pressure 143/87 01/26/18 22:18 O2 Sat by Pulse Oximetry 96 01/26/18 22:18 Temperature 98.3 F 01/26/18 22:18 Pulse Rate 96 01/26/18 22:18 Respiratory Rate 18 01/26/18 22:18 Blood Pressure 143/87 01/26/18 22:18 O2 Sat by Pulse Oximetry 96 01/26/18 22:18 Oxygen Delivery Oxygen Delivery Nasal Cannula Abdominal Pain - MDM Narrative Medical decision making narrative: Vital stable this time. Physical exam shows generalized abdominal pain and distention. Tympanic abdomen. Currently concern for bowel obstruction. We will obtain basic labs and CT abdomen pelvis with IV contrast for further assessment. We will give the patient fentanyl and Zofran for pain and nausea control. Once results are back, we will discuss possible admission versus transfer. 00:[address] abdomen and pelvis shows partial versus early complete small bowel obstruction. 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 Patient does have a reported history of sclerosing mesenteritis. We discussed inserting NG tube for decompression. Patient does not want to be transferred to [facility] for further care at this time. She reports that she was told when she was there last week that her condition was not operable. She is requesting to be admitted at this [facility] for further care. She is agreeable with NG tube placement. We will admit to hospitalist for NG suctioning, pain control, nothing by mouth status. - Medical Records Medical records reviewed: Yes I reviewed the patient's medical records. - Lab Data Lab results reviewed: Yes I reviewed the patient's lab results. Result diagrams: 01/26/18 22:32 01/26/18 22:32 Lab Results 01/26/18 01/26/18 01/27/18 Range/Units 22:32 22:32 00:00 WBC 10.8 (4.3-11.1) K/mcL RBC 4.86 (3.82-4.97) M/mcL Hgb 15.3 (11.5-15.4) g/dL Hct 46.6 H (35.3-44.9) % MCV 95.9 (83.0-100.0) fL MCH 31.5 (28.0-33.3) pg MCHC 32.8 (31.6-35.5) g/dL RDW 13.2 (11.5-14.5) % Plt Count 300 (140-400) K/mcL MPV 10.9 (9.4-12.4) fL Immature Gran % 0.7 (0-4) % Seg Neutrophils % 79.5 % Lymphocytes % 10.5 % Monocytes % 8.4 % Eosinophils % 0.5 % Basophils % 0.4 % Neutrophils # 8.6 (1.6-8.9) K/mcL Lymphocytes # 1.1 (0.6-4.6) K/mcL Monocytes # 0.9 (0.0-1.3) K/mcL Eosinophils # 0.1 (0.0-0.6) K/mcL Basophils # 0.0 (0.0-0.2) K/mcL Sodium 139 (136-145) mEq/L Potassium 4.0 (3.5-5.1) mEq/L Chloride 101 (98-107) mEq/L Carbon Dioxide 26 (23-29) mEq/L BUN 14 (8-23) mg/dL Creatinine 0.72 (0.60-1.20) mg/dL Est GFR ( Amer) > 60 (> 60) Est GFR (Non-Af Amer) > 60 (> 60) BUN/Creatinine Ratio 19 (6-26) Glucose 216 H (70-105) mg/dL Calculated Osmolality 295 (280-300) Calcium 9.0 (8.6-10.3) mg/dL Total Bilirubin 0.4 (0.3-1.0) mg/dL Direct Bilirubin 0.1 (0.0-0.2) mg/dL Indirect Bilirubin 0.3 (0.0-1.2) mg/dL AST 16 (13-39) Units/L ALT 13 (7-52) Units/L Alkaline Phosphatase 71 (34-104) Units/L Serum Total Protein 6.9 (6.4-8.9) g/dL Albumin 4.1 (3.5-5.7) g/dL Globulin 2.8 (2.4-3.5) g/dL Albumin/Globulin Ratio 1.5 (1.1-2.2) Amylase 44 (29-103) Units/L Lipase 10 L (11-82) Units/L Urine Color Yellow (Yellow) Urine Clarity Clear (Clear) Urine pH 7.5 (5.0-8.0) pH Units Ur Specific [place] 1.022 (1.010-1.025) Urine Protein Negative (Neg-Trace) mg/dL Urine Glucose (UA) 250 H (Normal) mg/dL Urine Ketones 15 H (Negative) mg/dL Urine Blood Negative (Negative) Urine Nitrite Negative (Negative) Urine Bilirubin Negative (Negative) Urine Urobilinogen Normal (Normal) mg/dL Ur Leukocyte Esterase Negative (Negative) Ur Culture Indicated? NO (NO) - Radiology Data Radiology results reviewed: Yes I reviewed the patient's radiology results. Abdomen/Pelvis CT 01/26/18 22:21 IMPRESSION: 1. 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 Correlate with clinical history. 2. Chronic mild intra and extrahepatic bile duct dilatation without choledocholithiasis evident. Correlate with LFTs; MRCP correlation may be indicated. 3. Bones are osteoporotic with multifocal compression fractures as described. D/ / Elton German / Elton German Interpreting Provider: Elton German aj Adams S.Bennett Situation: Demographics, MOA Background: Presenting Complaint, Relevant PMH, Meds, & Allergies Assessment: Vital Signs, Course and respsone to treatment, Exam Concerns, Patient/Family Expectation, Pertinant Lab Results Recommendation: Barrier(s) to disposition, Recommendation based on pending studies, treatments, or consults S.B.A.RMatti Report Given to: Dr. Acevedo
--- NOTE | 2018-01-26 22:48 | Emergency Department Note ---
Disposition Clinical Impression: Sclerosing mesenteritis Disposition: Still a Patient Forms: ED Satisfaction Letter, Work/School Release General Adult HPI - General Chief complaint: ED Abdominal Pain Stated complaint: Abdominal Pain, n/v Time Seen by Provider: 01/26/18 22:20 Source: patient, EMS Mode of arrival: EMS Limitations: no limitations Nursing Notes Reviewed: Yes Vital Signs Reviewed: Yes - History of Present Illness HPI Narrative: ED attending attestation note: I examined this patient and my medical decision-making was reviewed with the emergency medicine resident DR JOSEPHINE SUNSHINE. I agree with the documented findings, disposition and treatment plan as described except to the extent set forth below. Briefly: 77-year-old female with a prior history of sclerosing mesenteritis. Patient states for the past several days increased bloating decreased appetite episodes of vomiting nausea denies fevers chills or dysuria. Patient is tympanitic and distended patient was actively vomiting prior to arrival she arrived by EMS. Gave her Zofran sublingual. Patient getting a liter normal saline 50 g of fentanyl IV 8 mg of IV Zofran patient will undergo screening labs and abdominal pelvic CT with IV contrast. Disposition pending. Of note patient has her sclerosing mesenteritis managed at the [facility]. Pain Scale: 10 - Related Data Home Medications Medication Instructions Recorded Confirmed Ascorbic Acid [Vitamin C] 1,000 mg PO DAILY 11/03/15 12/18/17 Cholecalciferol (D-3) [Vitamin D] 5,000 unit PO DAILY 11/03/15 12/18/17 Multivit-Min/Iron/Folic/Lutein 1 tab PO DAILY 11/03/15 12/18/17 [Centrum Silver Women Tablet] Ranitidine HCl [Heartburn Relief] 150 mg PO BID 11/03/15 12/18/17 Calcium Carbonate/Vitamin D3 2 each PO DAILY 09/02/16 12/18/17 [Calcium 600+D Softgel] Cyanocobalamin (Vitamin B-12) 500 mcg PO DAILY 09/02/16 12/18/17 [Vitamin B-12] Fish Oil/Dha/Epa [Fish Oil 1,200 1 each PO DAILY 09/02/16 12/18/17 mg Fish Oil] Vitamin E (Dl,Tocopheryl Acet) 400 unit PO DAILY 09/02/16 12/18/17 [Vitamin E] Acetaminophen w/Cod 300-30 mg 1 tab PO Q6H PRN 12/18/17 12/18/17 [Tylenol w/Codeine #3] Celecoxib [Celebrex] 200 mg PO DAILY 12/18/17 12/18/17 Denosumab [Prolia (For Outpatient 60 mg SQ Q6M 12/18/17 12/18/17 Infusion)] Duloxetine HCl [Cymbalta] 60 mg PO DAILY 12/18/17 12/18/17 Glimepiride [Amaryl] 4 mg PO DAILY 12/18/17 12/18/17 Pantoprazole Sodium [Protonix] 40 mg PO DAILY 12/18/17 12/18/17 Pioglitazone HCl [Actos] 15 mg PO DAILY 12/18/17 12/18/17 SitaGLIPtin [Januvia] 100 mg PO DAILY 12/18/17 12/18/17 dilTIAZem HCl [Diltiazem HCl] 120 mg PO BID 12/18/17 12/18/17 predniSONE [PredniSONE] 5 mg PO DAILY 12/18/17 12/18/17 riTUXimab [Rituxan] 100 mg IV Q6M 12/18/17 12/18/17 Previous Rx's Medication Instructions Recorded Oxygen 1 each .ROUTE AD #1 each 12/20/17 Allergies Allergy/AdvReac Type Severity Reaction Status Date / Time Penicillins [PCN] Allergy Mild Hives Verified 11/26/16 15:29 metformin Allergy Hives Verified 11/10/17 19:33 Constitutional: Denies: fever Cardiovascular: Denies: chest pain Respiratory: Denies: cough, dyspnea Gastrointestinal: Reports: abdominal pain, nausea, vomiting. Denies: diarrhea, constipation, hematemesis, melena, hematochezia Genitourinary: Denies: urgency, dysuria, frequency, hematuria, discharge Neurological: Denies: headache, weakness, numbness, paresthesias Past Medical History - Past Medical History Medical history: Reports: arthritis, diabetes, osteoporosis, other Surgical history: Reports: Psychiatric history: Reports: no psych history ENGINE BOSS history: Reports: no ENGINE BOSS history - Social History Smoking Status: Never smoker Smokeless Tobacco Status: No Alcohol use: Reports: none Drug use: Reports: none Physical Exam - General Limitations: no limitations General appearance: alert, other (Appears uncomfortable, holding abdomen and moaning in pain) Course Vital Signs Temperature 98.3 F 01/26/18 22:18 Pulse Rate 96 01/26/18 22:18 Respiratory Rate 18 01/26/18 22:18 Blood Pressure 143/87 01/26/18 22:18 O2 Sat by Pulse Oximetry 96 01/26/18 22:18 Temperature 98.3 F 01/26/18 22:18 Pulse Rate 96 01/26/18 22:18 Respiratory Rate 18 01/26/18 22:18 Blood Pressure 143/87 01/26/18 22:18 O2 Sat by Pulse Oximetry 96 01/26/18 22:18 Oxygen Delivery Oxygen Delivery Nasal Cannula
[2018-01-26 22:55] LABS: Basophils % 0.4 %; Eosinophils # 0.1 K/mcL (0.0-0.6); Eosinophils % 0.5 %; Hematocrit 46.6 % (35.3-44.9); Hemoglobin 15.3 g/dL (11.5-15.4); Immature Granulocytes % 0.7 % (0-4); Lymphocytes # 1.1 K/mcL (0.6-4.6); Lymphocytes % 10.5 %; Mean Corpuscular HGB Conc 32.8 g/dL (31.6-35.5); Mean Corpuscular Hemoglobin 31.5 pg (28.0-33.3); Mean Corpuscular Volume 95.9 fL (83.0-100.0); Mean Platelet Volume 10.9 fL (9.4-12.4); Monocytes # 0.9 K/mcL (0.0-1.3); Monocytes % 8.4 %; Neutrophils # 8.6 K/mcL (1.6-8.9); Platelet Count 300 K/mcL (140-400); Red Blood Count 4.86 M/mcL (3.82-4.97); Red Cell Distribution Width 13.2 % (11.5-14.5); Segmented Neutrophils % 79.5 %
[2018-01-26 23:05] LABS: Alanine Aminotransferase 13 Units/L (7-52); Albumin 4.1 g/dL (3.5-5.7); Albumin/Globulin Ratio 1.5 (1.1-2.2); Alkaline Phosphatase 71 Units/L (34-104); Amylase 44 Units/L (29-103); Aspartate Amino Transferase 16 Units/L (13-39); BUN/Creatinine Ratio 19 (6-26); Bilirubin,Direct 0.1 mg/dL (0.0-0.2); Bilirubin,Indirect 0.3 mg/dL (0.0-1.2); Bilirubin,Total 0.4 mg/dL (0.3-1.0); Blood Urea Nitrogen 14 mg/dL (8-23); Carbon Dioxide 26 mEq/L (23-29); Chloride 101 mEq/L (98-107); Globulin 2.8 g/dL (2.4-3.5); Glucose 216 mg/dL (70-105); Lipase 10 Units/L (11-82); Osmolality,Calculated 295 (280-300); Sodium 139 mEq/L (136-145); Total Protein 6.9 g/dL (6.4-8.9); eGFR For Non-African Americans > 60 (> 60)
[2018-01-26] MEDS ORDERED: *HR* Promethazine 25 MG/ML VIAL IVP ONE (23:44)
[2018-01-27 00:27] LABS: Bilirubin,Urine Negative (Negative); Blood,Urine Negative (Negative); Clarity,Urine Clear (Clear); Color,Urine Yellow (Yellow); Glucose,Urine (UA) 250 mg/dL (Normal); Ketones,Urine 15 mg/dL (Negative); Leukocyte Esterase,Urine Negative (Negative); Nitrite,Urine Negative (Negative); PH,Urine 7.5 pH Units (5.0-8.0); Protein,Urine Negative (Neg-Trace); Specific Gravity,Urine 1.022 (1.010-1.025); Urobilinogen,Urine Normal (Normal)
[2018-01-27] MEDS ORDERED: Lidocaine Jelly 6ml 1 APPL/6 ML JEL.PF.APP TP ONE (01:12)
[2018-01-27] MEDS ORDERED: Ondansetron 4 MG/2 ML VIAL IVP PRN (02:12)
[2018-01-27] MEDS ORDERED: *HR* Promethazine 25 MG/ML VIAL IVP PRN (02:12)
[2018-01-27] MEDS ORDERED: Ketorolac 30 MG/ML VIAL IVP PRN (02:13)
[2018-01-27] MEDS ORDERED: Ringers Solution, Lactated 1,000 ML IVC SCH (02:15)
[2018-01-27] MEDS ORDERED: Naloxone 0.4 MG/ML INJ IVP PRN (02:23)
--- NOTE | 2018-01-27 02:31 | Internal Med History&Physical ---
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 She denies fever, chills, diarrhea or dysuria however. She does admit to having active bowel movements last yesterday afternoon. The ER she was noted to have a tympanitic and distended abdomen with active vomiting prior to arrival by EMS. He was given anti-medics and started on IV fluids and pain control. CT scan of her abdomen was done and showed partial versus early complete small bowel obstruction the result of a stable partially calcified desmoplastic mesenteric mass. She states that this mass was seen to be adherent to an artery when worked up at [facility] and therefore deemed inoperable. She stated her preference to staying here for her management rather than going to [facility] at this time. Past Med Surg Social Fam HX - Past Medical History Medical history: arthritis, diabetes, osteoporosis, other Additional medical history: breast cancer Psychiatric history: no psych history - Past Surgical History Surgical History: Additional surgical history: breast sx - 40 years ago. abdominal d/t scar tissue on bowels. back - Social History Smoking Status: Never smoker Smokeless Tobacco Status: No Alcohol use: none Drug use: none - Family History Father Living Status: Hx Family Cancer: Yes Mother Living Status: Hx Family Cancer: Yes Internal Medicine - H&P: Meds Ascorbic Acid [Vitamin C] 1,000 mg PO DAILY 11/03/15 [History] Cholecalciferol (D-3) [Vitamin D] 5,000 unit PO DAILY 11/03/15 [History] Multivit-Min/Iron/Folic/Lutein [Centrum Silver Women Tablet] 1 tab PO DAILY 11/03/15 [History] Ranitidine HCl [Heartburn Relief] 150 mg PO BID 11/03/15 [History] Calcium Carbonate/Vitamin D3 [Calcium 600+D Softgel] 2 each PO DAILY 09/02/16 [History] Cyanocobalamin (Vitamin B-12) [Vitamin B-12] 500 mcg PO DAILY 09/02/16 [History] Fish Oil/Dha/Epa [Fish Oil 1,200 mg Fish Oil] 1 each PO DAILY 09/02/16 [History] Vitamin E (Dl,Tocopheryl Acet) [Vitamin E] 400 unit PO DAILY 09/02/16 [History] Acetaminophen w/Cod 300-30 mg [Tylenol w/Codeine #3] 1 tab PO Q6H PRN 12/18/17 [History] Celecoxib [Celebrex] 200 mg PO DAILY 12/18/17 [History] Denosumab [Prolia (For Outpatient Infusion)] 60 mg SQ Q6M 12/18/17 [History] Duloxetine HCl [Cymbalta] 60 mg PO DAILY 12/18/17 [History] Glimepiride [Amaryl] 4 mg PO DAILY 12/18/17 [History] Pantoprazole Sodium [Protonix] 40 mg PO DAILY 12/18/17 [History] Pioglitazone HCl [Actos] 15 mg PO DAILY 12/18/17 [History] SitaGLIPtin [Januvia] 100 mg PO DAILY 12/18/17 [History] dilTIAZem HCl [Diltiazem HCl] 120 mg PO BID 12/18/17 [History] predniSONE [PredniSONE] 5 mg PO DAILY 12/18/17 [History] riTUXimab [Rituxan] 100 mg IV Q6M 12/18/17 [History] Oxygen 1 each .ROUTE AD #1 each 12/20/17 [Rx] Allergy/AdvReac Type Severity Reaction Status Date / Time Penicillins [PCN] Allergy Mild Hives Verified 11/26/16 15:29 metformin Allergy Hives Verified 11/10/17 19:33 All Systems PM: A 10-system review of systems was performed and is negative for pertinent findings except as documented above in the HPI. - Constitutional Vitals: Temp Pulse Resp BP Pulse Ox 98.3 F 96 18 136/82 96 01/26/18 22:18 01/26/18 22:18 01/27/18 02:14 01/27/18 02:14 01/26/18 22:18 Exam: Vitals: Reviewed General: Ill-appearing and in no acute distress Skin: Warm and supple. HEENT: Moist mucous membranes. No conjunctivae pallor. Neck: No lymphadenopathy. No JVD. No carotid bruits. No palpable thyroid. Chest: Normal thoracic expansion. Normal breath sounds. Clear to auscultation. Heart: Normal S1 & S2; rhythmic. No rubs or murmurs. Abdomen: Distended and tympanitic to percussion, mild tenderness on deep palp ation but no peritoneal reaction. Midline surgical abdominal scar noted. Extremities: No clubbing, cyanosis or edema. No calf tenderness. Normal distal pulses. Neurological: Awake, alert and oriented to person, place and time. No focal deficits. Psych: Affect appropriate. Internal Med - H&P Results - Labs CBC & Chem 7: 01/26/18 22:32 01/26/18 22:32 Labs: Short CBC 01/26/18 Range/Units 22:32 WBC 10.8 (4.3-11.1) K/mcL Hgb 15.3 (11.5-15.4) g/dL Hct 46.6 H (35.3-44.9) % Plt Count 300 (140-400) K/mcL Neutrophils # 8.6 (1.6-8.9) K/mcL BMP 01/26/18 22:32 Sodium 139 Potassium 4.0 Chloride 101 Carbon Dioxide 26 BUN 14 Creatinine 0.72 Glucose 216 H Calcium 9.0 Liver Function 01/26/18 Range/Units 22:32 Total Bilirubin 0.4 (0.3-1.0) mg/dL Direct Bilirubin 0.1 (0.0-0.2) mg/dL AST 16 (13-39) Units/L ALT 13 (7-52) Units/L Alkaline Phosphatase 71 (34-104) Units/L Albumin 4.1 (3.5-5.7) g/dL Urine 01/27/18 Range/Units 00:00 Urine Color Yellow (Yellow) Urine Clarity Clear (Clear) Urine pH 7.5 (5.0-8.0) pH Units Ur Specific [place] 1.022 (1.010-1.025) Urine Protein Negative (Neg-Trace) mg/dL Urine Glucose (UA) 250 H (Normal) mg/dL - Impressions ITS Impressions Abdomen/Pelvis CT 01/26/18 22:21 IMPRESSION: 1. 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 Correlate with clinical history. 2. Chronic mild intra and extrahepatic bile duct dilatation without choledocholithiasis evident. Correlate with LFTs; MRCP correlation may be indicated. 3. Bones are osteoporotic with multifocal compression fractures as described. D/ / Elton German / Elton German Interpreting Provider: Elton German - Assessment and plan (1) Small bowel obstruction Current Visit: Yes Status: Acute Assessment and plan: Will insert NG tube and connect to LIS. Anti-emetics and pain control prn. Surgery consultation advised. NPO status. All home meds on hold for now. (2) Sclerosing mesenteritis Current Visit: Yes Status: Acute Assessment and plan: Will continued to be managed with close observation by [facility] and administered symptomatic relief. (3) Diabetes Current Visit: Yes Status: Chronic Assessment and plan: Will place on insulin sliding scale for now. Qualifiers: Diabetes mellitus type: type 2 Diabetes mellitus ocean transportation intermediary insulin use: unspecified fpc insulin use status Diabetes mellitus complication status: with unspecified complications Qualified Code(s): E11.8 - Type 2 diabetes mellitus with unspecified complications (4) DVT prophylaxis Current Visit: Yes Status: Acute Assessment and plan: SubQ heparin indicated. - Time Spent With Patient Total time spent is greater than 50% in coordination of care (as documented) at patient's floor/unit and/or counseling patient: Greater than 35 minutes
[2018-01-27] MEDS: *HR* Heparin 5,000 UNIT/ML VIAL SQ SCH ×3 (06:09→21:05)
[2018-01-27] MEDS: Insulin LISPRO 300 UNITS/3 ML VIAL SQ SCH ×3 (06:11→20:28)
[2018-01-27] MEDS: Pantoprazole 40 MG VIAL IVP SCH (07:46)
[2018-01-27] MEDS ORDERED: Chloraseptic Spray 177 ML BOTTLE MM PRN (10:41)
[2018-01-27] MEDS: OXYCODONE Oral CONC 10 MG/0.5 ML ORAL.SYG SL PRN ×2 (11:15→21:39)
[2018-01-27] MEDS ORDERED: *HR* FentaNYL (PF) 100 MCG/2 ML VIAL IVP PRN (11:54)
[2018-01-27] MEDS: Ertapenem 1,000 MG in 0.9 % Sodium Chloride Mini Bag 100 ML IVPB SCH (13:38)
[2018-01-27] MEDS ORDERED: Acetaminophen IV 500 MG/50 ML INFUS..BTL IVPB ONE (14:40)
[2018-01-27] MEDS: Ringers Solution, Lactated 1,000 ML IVC SCH (14:40)
[2018-01-27] MEDS ORDERED: Acetaminophen IV 1,000 MG/100 ML INFUS..BTL IVPB ONE (15:00)
--- NOTE | 2018-01-27 15:34 | General Surgery Consult Note ---
<Raciel Juan S - Last Filed: 01/27/18 16:59> Date of Encounter: 01/27/18 Time of Encounter: 03:00 Assessment and Plan (1) Small bowel obstruction Current Visit: No Status: Acute CT evidence of small bowel obstruction with transition point at an abdominal mass which patient has known about since September 2017 Per daughter, mass was biopsied over at year ago at [facility] and was found to be adherent to an artery Mass was diagnosed as sclerosing mesenteritis by surg onc at [facility], after a benign pathology result Will obtain the operative report and pathology results from [facility] NGT placed, will monitor output Fentanyl and oxycodone for pain Zofran and phenergan for nausea Protonix for GI prophylaxis IVF of 125 ml/hr Keep patient NPO Will have extensive discussion regarding the plan with patient and daughter tomorrow after receiving pathology and operative reports from [facility] (2) Diabetes Current Visit: Yes Status: Chronic Management per primary team Insulin sliding scale Qualifiers: Diabetes mellitus type: type 2 Diabetes mellitus halfway insulin use: unspecified halfway insulin use status Diabetes mellitus complication status: with unspecified complications Qualified Code(s): E11.8 - Type 2 diabetes mellitus with unspecified complications History of Present Illness Consult date: 01/27/18 Reason for consult: other (small bowel obstruction) Requesting physician: Maria Alejandra Harden History of present illness: 77 year old female with PMHx of DM, rheumatoid arthritis, achalasia s/p dilatation and myotomy >9 years ago, new diagnosis of sclerosing mesenteritis in 2017 presents to [facility] with 1 day of abdominal pain, nausea, vomiting. Surgery was consulted for small bowel obstruction. In ED, patient's CT showed partial vs early complete small bowel obstruction with a desmoplastic mesenteric mass, which could represent carcinoid or desmoid tumor or sclerosing mesenteritis + chronic mild extra and intra-hepatic bile duct dilation without cholelithiasis. Patient had NGT placed and started on IVFs. Patient seen and examined. She states her abdominal pain is diffuse and started yesterday evening. It has been constant and does not radiate. She also developed acute nausea and non-bilious, non-bloody vomiting. Patient vomited approximately 6 times since yesterday. Her last bowel movement and flatus were yesterday before the pain started. She last ate yesterday evening. Patient states she had exploratory laparotomy at [facility] last year for similar symptoms and a mass identified on CT. The mass was biopsied and was positive for sclerosing mesenteritis. Per the patient, the mass is wrapped around an artery, so is was not excised at [facility]. Patient was discharged with follow-up appointments with rheumatology after her symptoms resolved. She states she has had 4 episodes of nausea, vomiting, abdominal pain since the procedure, which all resolved with pain relief and observation. She did not need an NGT prior to this admission for these episodes. Patient admits to having a colonoscopy over [address] Caballero, which was normal, a section, and a benign right breast tumor excised. She denies history of smoking, alcohol, and drug use. Past Med Surg Social Fam HX - Past Medical History Medical history: arthritis, diabetes, osteoporosis Additional medical history: breast cancer Psychiatric history: no psych history - Past Surgical History Surgical History: Additional surgical history: breast sx - 40 years ago. abdominal d/t scar tissue on bowels. back - Social History Smoking Status: Never smoker Smokeless Tobacco Status: No Alcohol use: none Drug use: none - Family History Father Living Status: Hx Family Cancer: Yes Mother Living Status: Hx Family Cancer: Yes Medications and Allergies RX: Ascorbic Acid [Vitamin C] 1,000 mg PO DAILY 11/03/15 [History] RX: Cholecalciferol (D-3) [Vitamin D] 5,000 unit PO DAILY 11/03/15 [History] RX: Multivit-Min/Iron/Folic/Lutein [Centrum Silver Women Tablet] 1 tab PO DAILY 11/03/15 [History] RX: Calcium Carbonate/Vitamin D3 [Calcium 600+D Softgel] 2 each PO DAILY 09/02/16 [History] RX: Cyanocobalamin (Vitamin B-12) [Vitamin B-12] 500 mcg PO DAILY 09/02/16 [History] RX: Fish Oil/Dha/Epa [Fish Oil 1,200 mg Fish Oil] 1 each PO DAILY 09/02/16 [H istory] RX: Vitamin E (Dl,Tocopheryl Acet) [Vitamin E] 400 unit PO DAILY 09/02/16 [History] RX: Celecoxib [Celebrex] 200 mg PO DAILY 12/18/17 [History] RX: Denosumab [Prolia (For Outpatient Infusion)] 60 mg SQ Q6M 12/18/17 [History] RX: Duloxetine HCl [Cymbalta] 60 mg PO DAILY 12/18/17 [History] RX: Glimepiride [Amaryl] 4 mg PO DAILY 12/18/17 [History] RX: Pantoprazole Sodium [Protonix] 40 mg PO DAILY 12/18/17 [History] RX: Pioglitazone HCl [Actos] 15 mg PO DAILY 12/18/17 [History] RX: dilTIAZem HCl [Diltiazem HCl] 120 mg PO BID 12/18/17 [History] RX: predniSONE [PredniSONE] 5 mg PO DAILY 12/18/17 [History] RX: riTUXimab [Rituxan] 100 mg IV Q6M 12/18/17 [History] L.acidoph,Paracasei, B.lactis [Probiotic] 1 cap PO DAILY 01/27/18 [History] RX: Oxygen 2 l IH AD 01/27/18 [History] Vit C/E/Zn/Coppr/Lutein/Zeaxan [Preservision Areds 2 Softgel] 2 cap PO DAILY 01/27/18 [History] Allergy/AdvReac Type Severity Reaction Status Date / Time Penicillins [PCN] Allergy Mild Hives Verified 11/26/16 15:29 metformin Allergy Hives Verified 11/10/17 19:33 Review of Systems All systems PM: The remainder of the systems were reviewed and are negative General Surgery Exam Initial Vital Signs Temp Pulse Resp BP Pulse Ox 98.3 F 96 18 143/87 96 01/26/18 22:18 01/26/18 22:18 01/26/18 22:18 01/26/18 22:18 01/26/18 22:18 - General physical appearance well nourished, no distress - ENT Other (nasogastric tube) - Respiratory normal expansion, normal respiratory effort - Cardiovascular Cardiovascular exam: Present: tachycardia - Abdomen Abdomen general surgery: Present: bowel sounds present, soft, non tender, surgical scars Hernia: Present: none - Integumentary Integumentary general surgery: Present: warm and dry, no abnormal pigmentation - Psychiatric Psychiatric general surgery: Present: A&Ox3, appropriate Exam Initial Vital Signs Temp Pulse Resp BP Pulse Ox 98.3 F 96 18 143/87 96 01/26/18 22:18 01/26/18 22:18 01/26/18 22:18 01/26/18 22:18 01/26/18 22:18 Results - Labs 01/26/18 22:32 01/26/18 22:32 Abnormal lab results Hct 46.6 % (35.3-44.9) H 01/26/18 22:32 Glucose 216 mg/dL (70-105) H 01/26/18 22:32 Lipase 10 Units/L (11-82) L 01/26/18 22:32 Urine Glucose (UA) 250 mg/dL (Normal) H 01/27/18 00:00 Urine Ketones 15 mg/dL (Negative) H 01/27/18 00:00 Diabetes panel 01/26/18 Range/Units 22:32 Sodium 139 (136-145) mEq/L Potassium 4.0 (3.5-5.1) mEq/L Chloride 101 (98-107) mEq/L Carbon Dioxide 26 (23-29) mEq/L BUN 14 (8-23) mg/dL Creatinine 0.72 (0.60-1.20) mg/dL Glucose 216 H (70-105) mg/dL Calcium 9.0 (8.6-10.3) mg/dL AST 16 (13-39) Units/L ALT 13 (7-52) Units/L Alkaline Phosphatase 71 (34-104) Units/L Albumin 4.1 (3.5-5.7) g/dL Calcium panel 01/26/18 Range/Units 22:32 Calcium 9.0 (8.6-10.3) mg/dL Albumin 4.1 (3.5-5.7) g/dL Pituitary panel 01/26/18 Range/Units 22:32 Sodium 139 (136-145) mEq/L Potassium 4.0 (3.5-5.1) mEq/L Chloride 101 (98-107) mEq/L Carbon Dioxide 26 (23-29) mEq/L BUN 14 (8-23) mg/dL Creatinine 0.72 (0.60-1.20) mg/dL Glucose 216 H (70-105) mg/dL Calcium 9.0 (8.6-10.3) mg/dL Adrenal panel 01/26/18 Range/Units 22:32 Sodium 139 (136-145) mEq/L Potassium 4.0 (3.5-5.1) mEq/L Chloride 101 (98-107) mEq/L Carbon Dioxide 26 (23-29) mEq/L BUN 14 (8-23) mg/dL Creatinine 0.72 (0.60-1.20) mg/dL Glucose 216 H (70-105) mg/dL Calcium 9.0 (8.6-10.3) mg/dL Total Bilirubin 0.4 (0.3-1.0) mg/dL AST 16 (13-39) Units/L ALT 13 (7-52) Units/L Alkaline Phosphatase 71 (34-104) Units/L Albumin 4.1 (3.5-5.7) g/dL All other labs normal. Consult Discharge Plan - Plan Referrals: Summer Richards CNP [Partnered Physician] - 02/02/18 2:00 pm Edmund Dawson MD [Partnered Physician] - 02/03/18 8:30 am <Nick Plaza - Last Filed: 01/27/18 18:55> Date of Encounter: 01/27/18 Review of Systems All systems PM: The remainder of the systems were reviewed and are negative General Surgery Exam Initial Vital Signs Temp Pulse Resp BP Pulse Ox 98.3 F 96 18 143/87 96 01/26/18 22:18 01/26/18 22:18 01/26/18 22:18 01/26/18 22:18 01/26/18 22:18 Exam Initial Vital Signs Temp Pulse Resp BP Pulse Ox 98.3 F 96 18 143/87 96 01/26/18 22:18 01/26/18 22:18 01/26/18 22:18 01/26/18 22:18 01/26/18 22:18 Results - Labs 01/26/18 22:32 01/26/18 22:32 Abnormal lab results Hct 46.6 % (35.3-44.9) H 01/26/18 22:32 Glucose 216 mg/dL (70-105) H 01/26/18 22:32 Lipase 10 Units/L (11-82) L 01/26/18 22:32 Urine Glucose (UA) 250 mg/dL (Normal) H 01/27/18 00:00 Urine Ketones 15 mg/dL (Negative) H 01/27/18 00:00 Diabetes panel 01/26/18 Range/Units 22:32 Sodium 139 (136-145) mEq/L Potassium 4.0 (3.5-5.1) mEq/L Chloride 101 (98-107) mEq/L Carbon Dioxide 26 (23-29) mEq/L BUN 14 (8-23) mg/dL Creatinine 0.72 (0.60-1.20) mg/dL Glucose 216 H (70-105) mg/dL Calcium 9.0 (8.6-10.3) mg/dL AST 16 (13-39) Units/L ALT 13 (7-52) Units/L Alkaline Phosphatase 71 (34-104) Units/L Albumin 4.1 (3.5-5.7) g/dL Calcium panel 01/26/18 Range/Units 22:32 Calcium 9.0 (8.6-10.3) mg/dL Albumin 4.1 (3.5-5.7) g/dL Pituitary panel 01/26/18 Range/Units 22:32 Sodium 139 (136-145) mEq/L Potassium 4.0 (3.5-5.1) mEq/L Chloride 101 (98-107) mEq/L Carbon Dioxide 26 (23-29) mEq/L BUN 14 (8-23) mg/dL Creatinine 0.72 (0.60-1.20) mg/dL Glucose 216 H (70-105) mg/dL Calcium 9.0 (8.6-10.3) mg/dL Adrenal panel 01/26/18 Range/Units 22:32 Sodium 139 (136-145) mEq/L Potassium 4.0 (3.5-5.1) mEq/L Chloride 101 (98-107) mEq/L Carbon Dioxide 26 (23-29) mEq/L BUN 14 (8-23) mg/dL Creatinine 0.72 (0.60-1.20) mg/dL Glucose 216 H (70-105) mg/dL Calcium 9.0 (8.6-10.3) mg/dL Total Bilirubin 0.4 (0.3-1.0) mg/dL AST 16 (13-39) Units/L ALT 13 (7-52) Units/L Alkaline Phosphatase 71 (34-104) Units/L Albumin 4.1 (3.5-5.7) g/dL All other labs normal. - Attending Attestation patient seen and examined. I have reviewed all pertinent labs, notes, and imaging. I have discussed with the resident in detail the plan. I agree with the above assessment and plan and wish to add the following... 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 I discussed with the patient possible options, but my concern is that this mass may involve large mesenteric vessels that may compromise the blood supply to a large portion of the small bowel that likely would not survivable. IF that is the case, my operative plan would include either an ostomy or PEG and plan for palliation. This was discussed in detail with the family with plans for a repeat discussion on 01/28; no acute surgery NG tube activity as tolerated will obtain reports from [facility] concerning pathology and op reports.
--- NOTE | 2018-01-27 15:50 | Internal Med Progress Note ---
Hospitalist Progress Note - Encounter Date of Encounter: 01/27/18 Time of Encounter: 11:00 - Subjective Interval History: Ms. 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 In the ER she was noted to have a tympanitic and distended abdomen with active vomiting prior to arrival by EMS. CT scan of her abdomen was done and showed partial versus early complete small bowel obstruction the result of a stable partially calcified desmoplastic mesenteric mass. Patient states her abdominal pain is little better today. Still having NG tube. Still feeling nauseated.. No BM yet. No flatus yet - Exam Vitals: Temp Pulse Resp BP Pulse Ox 98.9 F 120 28 126/70 96 01/27/18 13:56 01/27/18 13:56 01/27/18 13:56 01/27/18 13:56 01/27/18 13:56 Exam: Gen: Alert, awake, Oriented to time,place and person..NG tube + Chest: Diminished breath sounds B/L, No wheezing, No crackles, No rales Heart: S1S2+ RRR No murmurs Abd: Soft, Distended, BS - hypoactive, No organomegaly Ext: No edema, pulses are palpable, No calf tenderness Neuro : Benign findings Skin: No rash. - Assessment and Plan (1) Small bowel obstruction Current Visit: Yes Status: Acute Assessment and Plan: Strict NPO IV hydration with LR @ 125 cc/hr continue pain medication as needed continue NG tube with low intermittent suctioning surgery consulted on PPI IV started her on empirical antibiotic Invanz Patient does need to stay in the hospital more than 2 midnights due to her complex medical problems. So we will change her to full admission today. I did review my colleague Dr. Acevedo's H & P including HPI, PMH, PSH, FH, SH, and ROS no changes noticed (2) Sclerosing mesenteritis Current Visit: Yes Status: Acute Assessment and Plan: Surgery consulted continue empirical antibiotic Invanz for now (3) Diabetes Current Visit: Yes Status: Chronic Assessment and Plan: On insulin sliding scale (4) DVT prophylaxis Current Visit: Yes Status: Acute Assessment and Plan: SubQ heparin indicated. - Time Spent with Patient Total time spent is greater than 50% in coordination of care (as documented) at patient's floor/unit and/or counseling patient: Internal Medicine: Result - Labs CBC & Chem 7: 01/26/18 22:32 01/26/18 22:32 Labs: Short CBC 01/26/18 Range/Units 22:32 WBC 10.8 (4.3-11.1) K/mcL Hgb 15.3 (11.5-15.4) g/dL Hct 46.6 H (35.3-44.9) % Plt Count 300 (140-400) K/mcL Neutrophils # 8.6 (1.6-8.9) K/mcL BMP 01/26/18 22:32 Sodium 139 Potassium 4.0 Chloride 101 Carbon Dioxide 26 BUN 14 Creatinine 0.72 Glucose 216 H Calcium 9.0 Liver Function 01/26/18 Range/Units 22:32 Total Bilirubin 0.4 (0.3-1.0) mg/dL Direct Bilirubin 0.1 (0.0-0.2) mg/dL AST 16 (13-39) Units/L ALT 13 (7-52) Units/L Alkaline Phosphatase 71 (34-104) Units/L Albumin 4.1 (3.5-5.7) g/dL Urine 01/27/18 Range/Units 00:00 Urine Color Yellow (Yellow) Urine Clarity Clear (Clear) Urine pH 7.5 (5.0-8.0) pH Units Ur Specific [place] 1.022 (1.010-1.025) Urine Protein Negative (Neg-Trace) mg/dL Urine Glucose (UA) 250 H (Normal) mg/dL - Impressions Impressions Abdomen/Pelvis CT 01/26/18 22:21 IMPRESSION: 1. 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 Correlate with clinical history. 2. Chronic mild intra and extrahepatic bile duct dilatation without choledocholithiasis evident. Correlate with LFTs; MRCP correlation may be indicated. 3. Bones are osteoporotic with multifocal compression fractures as described. D/ / Elton German / Elton German Interpreting Provider: Elton German X-Ray 01/27/18 14:39 IMPRESSION: Enteric tube tip projects over the stomach however the side port is at the GE junction. Recommend advancement. D/ / Lisa Ambrosio MD / Lisa Ambrosio MD Interpreting Provider: Lisa Ambrosio MD Consult Discharge Plan - Plan Referrals: Summer Richards CNP [Partnered Physician] - 02/02/18 2:00 pm Edmund Dawson MD [Partnered Physician] - 02/03/18 8:30 am (3) Diabetes Qualifiers: Diabetes mellitus type: type 2 Diabetes mellitus buttermaker continuous churn insulin use: unspecified buttermaker continuous churn insulin use status Diabetes mellitus complication status: with unspecified complications Qualified Code(s): E11.8 - Type 2 diabetes mellitus with unspecified complications
[2018-01-28] MEDS: Insulin LISPRO 300 UNITS/3 ML VIAL SQ SCH ×4 (00:01→18:21)
[2018-01-28] MEDS: OXYCODONE Oral CONC 10 MG/0.5 ML ORAL.SYG SL PRN (01:49)
[2018-01-28] MEDS: Ringers Solution, Lactated 1,000 ML IVC SCH ×3 (01:49→19:44)
[2018-01-28] MEDS: *HR* Heparin 5,000 UNIT/ML VIAL SQ SCH ×3 (06:09→21:30)
[2018-01-28 06:26] LABS: Basophils % 0.4 %; Eosinophils # 0.2 K/mcL (0.0-0.6); Eosinophils % 1.6 %; Hematocrit 42.3 % (35.3-44.9); Immature Granulocytes % 1.2 % (0-4); Lymphocytes # 0.9 K/mcL (0.6-4.6); Lymphocytes % 8.4 %; Mean Corpuscular HGB Conc 31.9 g/dL (31.6-35.5); Mean Corpuscular Hemoglobin 31.6 pg (28.0-33.3); Mean Corpuscular Volume 99.1 fL (83.0-100.0); Mean Platelet Volume 10.5 fL (9.4-12.4); Monocytes # 0.9 K/mcL (0.0-1.3); Monocytes % 8.2 %; Neutrophils # 8.8 K/mcL (1.6-8.9); Platelet Count 221 K/mcL (140-400); Red Blood Count 4.27 M/mcL (3.82-4.97); Red Cell Distribution Width 13.7 % (11.5-14.5); Segmented Neutrophils % 80.2 %
[2018-01-28 06:35] LABS: Hemoglobin 13.5 g/dL (11.5-15.4)
[2018-01-28 07:51] LABS: BUN/Creatinine Ratio 13 (6-26); Blood Urea Nitrogen 9 mg/dL (8-23); Calcium 8.5 mg/dL (8.6-10.3); Carbon Dioxide 31 mEq/L (23-29); Chloride 104 mEq/L (98-107); Glucose 101 mg/dL (70-105); Osmolality,Calculated 287 (280-300); Potassium 4.3 mEq/L (3.5-5.1); Sodium 139 mEq/L (136-145); eGFR For Non-African Americans > 60 (> 60)
--- NOTE | 2018-01-28 07:56 | Internal Med Progress Note ---
Hospitalist Progress Note - Encounter Date of Encounter: 01/28/18 Time of Encounter: 07:53 - Subjective Interval History: Patient with history of diabetes, rheumatoid arthritis, sclerosing mesenteritis with recurrent bowel obstruction patient admitted with abdominal pain nausea vomitingv found to have small bowel obstruction surgery is followingvv patient seen this morning NG tube is in place she is not passing gas no more abdominal pain - Exam Vitals: Temp Pulse Resp BP Pulse Ox 98.4 F 102 16 126/80 96 01/28/18 06:22 01/28/18 06:22 01/28/18 06:22 01/28/18 06:22 01/28/18 06:22 Exam: Gen: Alert, awake, Oriented to time,place and person..NG tube + Chest: Diminished breath sounds B/L, No wheezing, No crackles, No rales Heart: S1S2+ RRR No murmurs Abd: Soft, Distended, BS - hypoactive, No organomegaly Ext: No edema, pulses are palpable, No calf tenderness Neuro : Benign findings Skin: No rash. - Assessment and Plan (1) Small bowel obstruction Current Visit: No Status: Acute Assessment and Plan: Patient with recurrent bowel obstruction surgery is following NG tube is in place with decide on transfer back to [facility] that maybe [facility] (2) Nausea & vomiting Current Visit: No Status: Acute Assessment and Plan: Ng in place (3) Diabetes Current Visit: Yes Status: Chronic Assessment and Plan: continue on sliding scale (4) Rheumatoid arthritis Current Visit: No Status: Chronic Assessment and Plan: continue on home meds (5) Sclerosing mesenteritis Current Visit: Yes Status: Chronic Assessment and Plan: with recurrent bowel obstruction - Time Spent with Patient Total time spent is greater than 50% in coordination of care (as documented) at patient's floor/unit and/or counseling patient: Internal Medicine: Result - Labs CBC & Chem 7: 01/28/18 05:56 01/28/18 05:56 Labs: Short CBC 01/28/18 Range/Units 05:56 WBC 10.9 (4.3-11.1) K/mcL Hgb 13.5 D (11.5-15.4) g/dL Hct 42.3 (35.3-44.9) % Plt Count 221 (140-400) K/mcL Neutrophils # 8.8 (1.6-8.9) K/mcL BMP 01/28/18 05:56 Sodium 139 Potassium 4.3 Chloride 104 Carbon Dioxide 31 H BUN 9 Creatinine 0.70 Glucose 101 Calcium 8.5 L - Impressions Impressions KUB X-Ray 01/27/18 14:39 IMPRESSION: Enteric tube tip projects over the stomach however the side port is at the GE junction. Recommend advancement. D/ / Lisa Ambrosio MD / Lisa Ambrosio MD Interpreting Provider: Lisa Ambrosio MD Consult Discharge Plan - Plan Referrals: Summer Richards CNP [Partnered Physician] - 02/02/18 2:00 pm Edmund Dawson MD [Partnered Physician] - 02/03/18 8:30 am (2) Nausea & vomiting Qualifiers: Vomiting type: unspecified Vomiting Intractability: unspecified Qualified Code(s): R11.2 - Nausea with vomiting, unspecified (3) Diabetes Qualifiers: Diabetes mellitus type: type 2 Diabetes mellitus mcfp insulin use: unspecified mcfp insulin use status Diabetes mellitus complication status: with unspecified complications Qualified Code(s): E11.8 - Type 2 diabetes mellitus with unspecified complications (4) Rheumatoid arthritis Qualifiers: Rheumatoid arthritis location: unspecified site Rheumatoid factor presence: unspecified presence Qualified Code(s): M06.9 - Rheumatoid arthritis, unspecified
--- NOTE | 2018-01-28 08:28 | General Surgery Progress Note ---
<DrakeRaciel S - Last Filed: 01/28/18 17:26> Date of Encounter: 01/28/18 Time of Encounter: 08:15 - Assessment and Plan (1) Small bowel obstruction Current Visit: No Status: Acute CT evidence of small bowel obstruction with transition point at an abdominal mass which patient has known about since September 2017 Per daughter, mass was biopsied over at year ago at [facility] and was found to be adherent to an artery Mass was diagnosed as sclerosing mesenteritis by surg onc at [facility], after a benign pathology result Waiting for the operative report and pathology results from [facility] NGT placed, ~40 output since yesterday Fentanyl and oxycodone for pain Zofran and phenergan for nausea Protonix for GI prophylaxis IVF of 125 ml/hr Keep patient NPO Will have extensive discussion regarding the plan with patient and daughter today after receiving pathology and operative reports from [facility] Possibility of being evaluated at [facility] or [facility] (2) Diabetes Current Visit: Yes Status: Chronic Qualifiers: Diabetes mellitus type: type 2 Diabetes mellitus senior living insulin use: unspecified intermediate teacher insulin use status Diabetes mellitus complication status: with unspecified complications Qualified Code(s): E11.8 - Type 2 diabetes mellitus with unspecified complications Subjective Patient reports: no new complaints, feels better, pain is less, no flatus, no bowel movement Narrative: Patient doing well this morning. She denies abdominal pain, nausea, vomiting, BMs, flatus, CP, fevers/chills. Objective Vital Signs - Last 8 Hours Temp Pulse Resp BP Pulse Ox 01/28/18 06:22 98.4 F 102 16 126/80 96 01/28/18 03:15 98.2 F 102 15 133/80 96 Intake and Output 01/27/18 01/28/18 01/28/18 23:59 07:59 15:59 Intake Total 1100 / 1100 1000 / 1000 Output Total 700 / 700 400 / 400 Balance 400 / 400 600 / 600 Intake: IV Fluids 1100 / 1100 1000 / 1000 Lactated Ringers 1,000 ML @ 125 1000 / 1000 1000 / 1000 mls/hr IVC .Q8H [facility]MOND Rx#: [id number] INVanz 1,000 MG In 0.9 % Sodium 100 / 100 Chloride (Mini-Bag +) 100 ML @ 100 mls/hr IVPB DAILY [facility]MOND Rx#: [id number] Oral 0 / 0 0 / 0 Output: Urine 700 / 700 400 / 400 Gastric Drainage 0 / 0 Other: # Bowel Movements 0 Weight 63.2 kg Blood Glucose* 96 82 Patient Weight 01/28/18 23:59 Weight 63.2 kg - General physical appearance well developed, well nourished - ENT Other (NGT intact) - Respiratory normal expansion, normal respiratory effort - Cardiovascular Cardiovascular exam: Present: RRR - Abdomen Abdomen: Present: bowel sounds present, soft, non tender, surgical scars Hernia: none - Integumentary no rash - Psychiatric oriented to time, oriented to person, oriented to place - Labs 01/28/18 05:56 01/28/18 05:56 Diabetes panel 01/28/18 Range/Units 05:56 Sodium 139 (136-145) mEq/L Potassium 4.3 (3.5-5.1) mEq/L Chloride 104 (98-107) mEq/L Carbon Dioxide 31 H (23-29) mEq/L BUN 9 (8-23) mg/dL Creatinine 0.70 (0.60-1.20) mg/dL Glucose 101 (70-105) mg/dL Calcium 8.5 L (8.6-10.3) mg/dL Calcium panel 01/28/18 Range/Units 05:56 Calcium 8.5 L (8.6-10.3) mg/dL Pituitary panel 01/28/18 Range/Units 05:56 Sodium 139 (136-145) mEq/L Potassium 4.3 (3.5-5.1) mEq/L Chloride 104 (98-107) mEq/L Carbon Dioxide 31 H (23-29) mEq/L BUN 9 (8-23) mg/dL Creatinine 0.70 (0.60-1.20) mg/dL Glucose 101 (70-105) mg/dL Calcium 8.5 L (8.6-10.3) mg/dL Adrenal panel 01/28/18 Range/Units 05:56 Sodium 139 (136-145) mEq/L Potassium 4.3 (3.5-5.1) mEq/L Chloride 104 (98-107) mEq/L Carbon Dioxide 31 H (23-29) mEq/L BUN 9 (8-23) mg/dL Creatinine 0.70 (0.60-1.20) mg/dL Glucose 101 (70-105) mg/dL Calcium 8.5 L (8.6-10.3) mg/dL Consult Discharge Plan - Plan Referrals: Summer Richards CNP [Partnered Physician] - 02/02/18 2:00 pm Edmund Dawson MD [Partnered Physician] - 02/03/18 8:30 am <Nick Plaza - Last Filed: 01/29/18 07:55> Date of Encounter: 01/29/18 Objective Vital Signs - Last 8 Hours Temp Pulse Resp BP Pulse Ox 01/29/18 06:50 98.2 F 97 16 140/76 96 01/29/18 04:55 98.3 F 105 15 133/51 96 01/29/18 00:35 98.2 F 103 16 147/78 93 Intake and Output 01/28/18 01/28/18 01/29/18 15:59 23:59 07:59 Intake Total 1100 / 1100 950 / 950 950 / 950 Output Total 1000 / 1000 400 / 400 800 / 800 Balance 100 / 100 550 / 550 150 / 150 Intake: IV Fluids 1100 / 1100 950 / 950 950 / 950 Lactated Ringers 1,000 ML @ 125 1000 / 1000 950 / 950 950 / 950 mls/hr IVC .Q8H [facility]MOND Rx#: [id number] Ofirmev 1,000 mg/100 ml 1,000 100 / 100 mg In 100 ml @ 400 mls/hr IVPB Q6HR PRN Rx#:[id number] INVanz 1,000 MG In 0.9 % Sodium 0 / 0 Chloride (Mini-Bag +) 100 ML @ 100 mls/hr IVPB DAILY [facility]MOND Rx#: [id number] Oral 0 / 0 0 / 0 Output: Urine 1000 / 1000 300 / 300 800 / 800 Gastric Drainage 0 / 0 100 / 100 Other: Meal NPO Blood Glucose* 92 77 142 - Labs 01/28/18 05:56 01/28/18 05:56 - Attending Attestation patient seen and examined. I have reviewed all labs, imaging, and notes. I agree with the above assessment and plan and wish to add the following... Discussed in detail with family CT scan findings. reviewed with radiology and senior hr business partner. Strongly recommend re-evaluation with surgical oncologist at [facility]. family and patient was in agreement.
[2018-01-28] MEDS: Pantoprazole 40 MG VIAL IVP SCH (08:44)
[2018-01-28] MEDS: Ertapenem 1,000 MG in 0.9 % Sodium Chloride Mini Bag 100 ML IVPB SCH (08:44)
[2018-01-28] MEDS: Acetaminophen IV 1,000 MG/100 ML INFUS..BTL IVPB PRN (10:33)
--- NOTE | 2018-01-28 17:24 | Event Note ---
Date of Encounter: 01/28/18 Time of Encounter: 13:00 Discussed with the family in detail concerning my discussion with radiology and my partners. I am not able to provide her with the therapy she needs for cure. I am not confident that such a thing is possible, but I recommended that they go back to [facility] for re-evaluation by the surgical oncologist who performed the surgery and biopsy. THe patient and family expressed understanding and appreciated by evaluation.
[2018-01-29] MEDS: Insulin LISPRO 300 UNITS/3 ML VIAL SQ SCH ×4 (00:47→17:27)
[2018-01-29] MEDS: Ringers Solution, Lactated 1,000 ML IVC SCH ×3 (03:44→14:00)
[2018-01-29] MEDS ORDERED: *HR* Dextrose 50 % in Water (Syg) 50 ML SYRINGE ONE (05:17)
[2018-01-29] MEDS: *HR* Heparin 5,000 UNIT/ML VIAL SQ SCH ×2 (05:47→14:17)
[2018-01-29] MEDS ORDERED: cefTRIAXone 1,000 MG in Water for inj. (sterile) 20 ML 10 ML IVP SCH (09:00)
--- NOTE | 2018-01-29 09:28 | Internal Med Progress Note ---
Hospitalist Progress Note - Encounter Date of Encounter: 01/29/18 Time of Encounter: 09:24 - Subjective Interval History: Patient with history of diabetes, rheumatoid arthritis, sclerosing mesenteritis with recurrent bowel obstruction patient admitted with abdominal pain nausea vomitingv found to have small bowel obstruction surgery is followingvv patient seen this morning NG tube is in place she is not passing gas no more abdominal pain 01/29 patient seen and examined still no bowel movement she is not passing gas and NG tube is in place surgical follow-up evaluation and event note noted patient being transferred to [facility] transfer service has been called . I have spoken with [facility] . no bed av ailable yet will let us know when beds become available and the patient can be transferred to [facility] she is clinically stable and is hemodynamically stable no epigastric painn - Exam Vitals: Temp Pulse Resp BP Pulse Ox 98.2 F 97 16 140/76 96 01/29/18 06:50 01/29/18 06:50 01/29/18 06:50 01/29/18 06:50 01/29/18 06:50 Exam: Gen: Alert, awake, Oriented to time,place and person..NG tube + Chest: Diminished breath sounds B/L, No wheezing, No crackles, No rales Heart: S1S2+ RRR No murmurs Abd: Soft, Distended, BS - hypoactive, No organomegaly Ext: No edema, pulses are palpable, No calf tenderness Neuro : Benign findings Skin: No rash. - Assessment and Plan (1) Small bowel obstruction Current Visit: No Status: Acute Assessment and Plan: bowel obstruction persist surgical evaluation and follow-up event note noted arrangement is being made to transfer to [facility] (2) Nausea & vomiting Current Visit: No Status: Acute Assessment and Plan: resolved NG in place (3) Diabetes Current Visit: Yes Status: Chronic Assessment and Plan: continue nita sliding scale (4) Rheumatoid arthritis Current Visit: No Status: Chronic Assessment and Plan: chronic (5) Sclerosing mesenteritis Current Visit: Yes Status: Chronic Assessment and Plan: awaiting transfer to [facility] - Time Spent with Patient Total time spent is greater than 50% in coordination of care (as documented) at patient's floor/unit and/or counseling patient: Internal Medicine: Result - Labs CBC & Chem 7: 01/28/18 05:56 01/28/18 05:56 Consult Discharge Plan - Plan Referrals: Summer Richards CNP [Partnered Physician] - 02/02/18 2:00 pm Edmund Dawson MD [Partnered Physician] - 02/03/18 8:30 am (2) Nausea & vomiting Qualifiers: Vomiting type: unspecified Vomiting Intractability: unspecified Qualified Code(s): R11.2 - Nausea with vomiting, unspecified (3) Diabetes Qualifiers: Diabetes mellitus type: type 2 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
[2018-01-29] MEDS: MetroNIDAZOLE 500 MG/100 ML 500 MG/100 ML BAG IVPB SCH ×2 (09:33→16:19)
[2018-01-29] MEDS: Pantoprazole 40 MG VIAL IVP SCH (09:37)
[2018-01-29] MEDS ORDERED: *HR* Dextrose 50 % in Water (Syg) 50 ML SYRINGE IVP PRN (12:23)
[2018-01-29] MEDS ORDERED: Dextrose Gel 15 GM/37.5 ML TUBE PO PRN ×2 (12:23)
[2018-01-29] MEDS ORDERED: D5% in Water 1,000 ML IVC PRN (12:23)
[2018-01-29] MEDS: Acetaminophen IV 1,000 MG/100 ML INFUS..BTL IVPB PRN (16:08)
[2018-01-29 23:02] VITALS: BP 104/65
== END 2018-01-29 20:08 | disposition critical access hospital (66) | DRG 389 ==
LOC: EMEROOARM 22:16 → 3BNU 22:16 → 3ANU 01-27 13:00
PROVIDERS: ADMIT Internal Medicine; ATTEND Internal Medicine

== ENCOUNTER 2019-10-23 16:06 | Observation (INO) ==
[2019-10-23] MEDS ORDERED: 0.9 % Sodium Chloride 1,000 ML IVC ONE (16:09)
[2019-10-23] MEDS ORDERED: Ondansetron 4 MG/2 ML VIAL IVP ONE (16:09)
[2019-10-23 16:51] LABS: Basophils # 0.1 K/mcL (0.0-0.2); Basophils % 0.4 %; Eosinophils # 0.2 K/mcL (0.0-0.6); Eosinophils % 1.4 %; Hemoglobin 14.5 g/dL (11.5-15.4); Immature Granulocytes % 0.4 % (0-4); Lymphocytes # 0.9 K/mcL (0.6-4.6); Lymphocytes % 5.9 %; Mean Corpuscular HGB Conc 32.2 g/dL (31.6-35.5); Mean Corpuscular Hemoglobin 31.3 pg (28.0-33.3); Mean Corpuscular Volume 97.2 fL (83.0-100.0); Monocytes # 0.8 K/mcL (0.0-1.3); Monocytes % 5.2 %; Neutrophils # 12.8 K/mcL (1.6-8.9); Platelet Count 289 K/mcL (140-400); Red Blood Count 4.63 M/mcL (3.82-4.97); Red Cell Distribution Width 12.9 % (11.5-14.5); Segmented Neutrophils % 86.7 %; White Blood Count 14.7 K/mcL (4.3-11.1)
[2019-10-23 17:10] LABS: BUN/Creatinine Ratio 16 (6-26); Blood Urea Nitrogen 11 mg/dL (8-23); Calcium 9.3 mg/dL (8.6-10.3); Carbon Dioxide 25 mEq/L (23-29); Chloride 102 mEq/L (98-107); Glucose 214 mg/dL (70-105); Lipase 4 Units/L (11-82); Osmolality,Calculated 298 (280-300); Potassium 3.9 mEq/L (3.5-5.1); Sodium 141 mEq/L (136-145); eGFR For African Americans > 60 (> 60); eGFR For Non-African Americans > 60 (> 60)
[2019-10-23] MEDS ORDERED: *HR* FentaNYL (PF) 100 MCG/2 ML VIAL ONE (18:11)
[2019-10-23] MEDS ORDERED: *HR* Midazolam HCl 5 MG/5 ML VIAL IVP ONE ×2 (18:12→18:18)
[2019-10-23] MEDS ORDERED: Simethicone 40 MG/0.6 ML MLS IR ONE (18:18)
[2019-10-23] MEDS ORDERED: Tetracaine/Benzocaine/Butamben 1 SPRAY AEROSOL MM ONE (18:18)
[2019-10-23] MEDS ORDERED: *HR* FentaNYL (PF) 100 MCG/2 ML VIAL IVP ONE (18:18)
[2019-10-23] MEDS ORDERED: Albuterol 2.5 MG/3 ML NEBULIZER ONE (19:30)
[2019-10-23] MEDS ORDERED: Ondansetron 4 MG/2 ML VIAL IVP PRN (19:33)
[2019-10-23] MEDS ORDERED: Ipratropium/Albuterol Neb 3 ML IH ONE (19:34)
[2019-10-23] MEDS ORDERED: Naloxone 0.4 MG/ML INJ IVP PRN (20:14)
[2019-10-23] MEDS: 0.9 % Sodium Chloride 1,000 ML IVC SCH (20:46)
[2019-10-23] MEDS ORDERED: D5% in Water 1,000 ML IVC PRN (20:57)
[2019-10-23] MEDS ORDERED: *HR* Dextrose 50 % in Water (Vial) 50 ML VIAL IVP PRN (20:57)
[2019-10-23] MEDS ORDERED: Dextrose Gel 15 GM/37.5 ML TUBE PO PRN ×2 (20:57)
[2019-10-23] MEDS: Insulin LISPRO 300 UNITS/3 ML VIAL SQ SCH (23:49)
[2019-10-24] MEDS: Pantoprazole 40 MG VIAL IVP SCH ×3 (03:23→17:05)
[2019-10-24] MEDS ORDERED: *HR* Metoprolol 5 MG/5 ML VIAL IVP ONE (03:49)
[2019-10-24] MEDS: Insulin LISPRO 300 UNITS/3 ML VIAL SQ SCH ×3 (05:28→17:07)
[2019-10-24 07:13] LABS: Hematocrit 41.9 % (35.3-44.9); Hemoglobin 13.1 g/dL (11.5-15.4); Mean Corpuscular HGB Conc 31.3 g/dL (31.6-35.5); Mean Corpuscular Hemoglobin 30.9 pg (28.0-33.3); Mean Corpuscular Volume 98.8 fL (83.0-100.0); Mean Platelet Volume 10.8 fL (9.4-12.4); Platelet Count 253 K/mcL (140-400); Red Blood Count 4.24 M/mcL (3.82-4.97); Red Cell Distribution Width 13.2 % (11.5-14.5); White Blood Count 17.3 K/mcL (4.3-11.1)
[2019-10-24 07:32] LABS: Alanine Aminotransferase 8 Units/L (7-52); Albumin 3.6 g/dL (3.5-5.7); Albumin/Globulin Ratio 1.3 (1.1-2.2); Alkaline Phosphatase 75 Units/L (34-104); Aspartate Amino Transferase 14 Units/L (13-39); BUN/Creatinine Ratio 15 (6-26); Bilirubin,Total 0.7 mg/dL (0.3-1.0); Blood Urea Nitrogen 9 mg/dL (8-23); Calcium 8.2 mg/dL (8.6-10.3); Carbon Dioxide 25 mEq/L (23-29); Chloride 107 mEq/L (98-107); Globulin 2.7 g/dL (2.4-3.5); Glucose 155 mg/dL (70-105); Magnesium 1.8 mg/dL (1.6-2.6); Osmolality,Calculated 290 (280-300); Phosphorous 1.8 mg/dL (2.7-4.5); Sodium 139 mEq/L (136-145); Total Protein 6.3 g/dL (6.4-8.9); eGFR For African Americans > 60 (> 60); eGFR For Non-African Americans > 60 (> 60)
[2019-10-24] MEDS: Hydrocortisone Sodium Succ 100 MG/2 ML VIAL IVP SCH ×3 (10:20→17:06)
[2019-10-24] MEDS: Fluconazole 400 MG/200 ML 400 MG/200 ML BAG IVPB SCH (11:36)
[2019-10-24] MEDS ORDERED: Lidocaine -MPF 2% 2 ML VIAL ONE (12:26)
[2019-10-24] MEDS ORDERED: *HR* Propofol 200 MG/20 ML VIAL IVP ONE (12:26)
[2019-10-24] MEDS ORDERED: *HR* Succinylcholine 200 MG/10 ML VIAL IVP ONE (12:26)
[2019-10-24] MEDS ORDERED: Dexamethasone 4 MG/ML VIAL ONE (12:46)
[2019-10-24] MEDS ORDERED: Lidocaine HCL 4 ML Topical Solution (Laryng-O-Jet Kit Sterile Pak) TP ONE (12:46)
[2019-10-24] MEDS ORDERED: Ondansetron 4 MG/2 ML VIAL ONE (12:46)
[2019-10-24] MEDS: 0.9 % Sodium Chloride 1,000 ML IVC SCH (16:28)
[2019-10-25] MEDS: Hydrocortisone Sodium Succ 100 MG/2 ML VIAL IVP SCH ×5 (00:15→23:46)
[2019-10-25] MEDS: Insulin LISPRO 300 UNITS/3 ML VIAL SQ SCH ×5 (00:16→23:47)
[2019-10-25] MEDS: Pantoprazole 40 MG VIAL IVP SCH ×2 (05:44→19:02)
[2019-10-25] MEDS: Fluconazole 400 MG/200 ML 400 MG/200 ML BAG IVPB SCH (08:15)
[2019-10-25] MEDS ORDERED: Potassium Phosphate 44 MEQ in 0.9 % Sodium Chloride 250 ML IVPB ONE (10:01)
[2019-10-25 10:59] LABS: BUN/Creatinine Ratio 18 (6-26); Blood Urea Nitrogen 10 mg/dL (8-23); Calcium 7.6 mg/dL (8.6-10.3); Carbon Dioxide 27 mEq/L (23-29); Chloride 108 mEq/L (98-107); Glucose 212 mg/dL (70-105); Magnesium 1.9 mg/dL (1.6-2.6); Osmolality,Calculated 297 (280-300); Potassium 3.2 mEq/L (3.5-5.1); Sodium 141 mEq/L (136-145); eGFR For African Americans > 60 (> 60); eGFR For Non-African Americans > 60 (> 60)
[2019-10-25] MEDS ORDERED: Calcium Gluconate 1gm/50mL 1 GM/50 ML BAG IVPB ONE (14:08)
[2019-10-25] MEDS ORDERED: Potassium Chloride Elixir 20 MEQ/15 ML UDC PO ONE (14:08)
[2019-10-25 18:01] LABS: Calcium 7.8 mg/dL (8.6-10.3); Potassium 4.7 mEq/L (3.5-5.1)
[2019-10-25] MEDS: 0.9 % Sodium Chloride 1,000 ML IVC SCH (21:25)
[2019-10-26] MEDS: Hydrocortisone Sodium Succ 100 MG/2 ML VIAL IVP SCH ×2 (05:58→11:53)
[2019-10-26] MEDS: Pantoprazole 40 MG VIAL IVP SCH (05:59)
[2019-10-26] MEDS: Insulin LISPRO 300 UNITS/3 ML VIAL SQ SCH ×2 (05:59→11:58)
[2019-10-26 06:46] VITALS: BP 147/82
[2019-10-26 08:04] LABS: Calcium 7.7 mg/dL (8.6-10.3); Potassium 3.6 mEq/L (3.5-5.1)
[2019-10-26] MEDS ORDERED: Calcium Gluconate 1gm/50mL 1 GM/50 ML BAG IVPB ONE (08:11)
[2019-10-26] MEDS ORDERED: Potassium Phosphate 44 MEQ in 0.9 % Sodium Chloride 250 ML IVPB ONE (08:11)
[2019-10-26] MEDS ORDERED: Fluconazole 100 MG TABLET PO SCH (09:00)
== END 2019-10-26 13:33 | disposition home or self-care (01) ==
LOC: ICNU 16:06 → EMEROOARM 16:06 → ICNU 18:00 → EMEROOARM 18:00 → SUATTDRO 19:41 → 3ANU 10-24 17:54
PROVIDERS: ADMIT Internal Medicine; ATTEND Internal Medicine
PROC: ENDOEFB (2019-10-24 12:30)

== ENCOUNTER 2021-12-31 10:15 | Inpatient (IN) ==
[2021-12-31] MEDS ORDERED: *HR* FentaNYL (PF) 100 MCG/2 ML VIAL IVP ONE (11:35)
[2021-12-31 11:50] LABS: Basophils % 0.3 %; Eosinophils # 0.1 K/mcL (0.0-0.6); Eosinophils % 0.9 %; Hematocrit 39.1 % (35.3-44.9); Hemoglobin 12.4 g/dL (11.5-15.4); Immature Granulocytes % 0.6 % (0-4); Lymphocytes # 0.6 K/mcL (0.6-4.6); Lymphocytes % 4.8 %; Mean Corpuscular HGB Conc 31.7 g/dL (31.6-35.5); Mean Corpuscular Hemoglobin 31.9 pg (28.0-33.3); Mean Corpuscular Volume 100.5 fL (83.0-100.0); Mean Platelet Volume 10.9 fL (9.4-12.4); Monocytes # 1.1 K/mcL (0.0-1.3); Monocytes % 8.3 %; Neutrophils # 10.9 K/mcL (1.6-8.9); Platelet Count 164 K/mcL (140-400); Red Blood Count 3.89 M/mcL (3.82-4.97); Red Cell Distribution Width 13.6 % (11.5-14.5); Segmented Neutrophils % 85.1 %; White Blood Count 12.8 K/mcL (4.3-11.1)
[2021-12-31 12:04] LABS: BUN/Creatinine Ratio 20 (6-26); Blood Urea Nitrogen 18 mg/dL (8-23); Calcium 9.3 mg/dL (8.6-10.3); Carbon Dioxide 32 mEq/L (23-29); Chloride 100 mEq/L (98-107); Glucose 215 mg/dL (70-105); Osmolality,Calculated 294 (280-300); Potassium 4.5 mEq/L (3.5-5.1); Sodium 138 mEq/L (136-145); Troponin I < 0.03 ng/mL (< 0.04)
[2021-12-31 12:18] LABS: Influenza A PCR Negative (Negative); Influenza B PCR Negative (Negative); Resp. Syncytial Virus PCR Negative (Negative)
[2021-12-31 12:25] LABS: SARS-CoV-2 by PCR (In House) Negative (Negative)
[2021-12-31 13:22] LABS: Bilirubin,Urine Negative (Negative); Blood,Urine Negative (Negative); Clarity,Urine Clear (Clear); Color,Urine Yellow (Yellow); Glucose,Urine (UA) >=1000 mg/dL (Normal); Ketones,Urine Negative (Negative); Leukocyte Esterase,Urine Negative (Negative); Mucus,Urine Few per lpf (None-Few); Nitrite,Urine Negative (Negative); PH,Urine 5.5 pH Units (5.0-8.0); Protein,Urine Trace mg/dL (Neg-Trace); RBC,Urine 0-3 per hpf (0-3); Specific Gravity,Urine > 1.030 (1.010-1.025); Urobilinogen,Urine Normal (Normal)
[2021-12-31] MEDS ORDERED: Naloxone 0.4 MG/ML INJ IVP PRN (16:08)
[2021-12-31] MEDS ORDERED: Acetaminophen 325 MG TABLET PO PRN (16:08)
[2021-12-31] MEDS ORDERED: Ondansetron 4 MG/2 ML VIAL IVP PRN (16:08)
[2021-12-31] MEDS: *HR* OxyCODONE Immed Rel 5 MG TABLET PO PRN (17:29)
[2021-12-31] MEDS: Insulin LISPRO 300 UNITS/3 ML VIAL SUBQ SCH (19:37)
[2022-01-01] MEDS: *HR* OxyCODONE Immed Rel 5 MG TABLET PO PRN ×2 (01:48→16:47)
[2022-01-01] MEDS: *HR* HYDROcodone/Acet 5/325 mg TABLET PO PRN ×2 (04:13→20:35)
[2022-01-01] MEDS: *HR* Enoxaparin 40 MG/0.4 ML SYRINGE SQ SCH (05:03)
[2022-01-01] MEDS: Insulin LISPRO 300 UNITS/3 ML VIAL SUBQ SCH ×4 (07:32→20:54)
[2022-01-01] MEDS ORDERED: Ipratropium/Albuterol Neb 3 ML IH PRN (21:03)
[2022-01-02] MEDS: *HR* Enoxaparin 40 MG/0.4 ML SYRINGE SQ SCH (06:00)
[2022-01-02] MEDS: *HR* HYDROcodone/Acet 5/325 mg TABLET PO PRN ×2 (06:08→18:06)
[2022-01-02] MEDS: Insulin LISPRO 300 UNITS/3 ML VIAL SUBQ SCH ×4 (08:21→20:28)
[2022-01-02] MEDS: Multivit/Ca/Min/Fe/FA 1 TAB TABLET PO SCH (08:22)
[2022-01-02] MEDS: Cyanocobalamin (B-12) 1,000 MCG TABLET PO SCH (08:22)
[2022-01-02] MEDS: predniSONE 5 MG TABLET PO SCH (08:22)
[2022-01-02] MEDS: DilTIAZem CD (24hr) 120 MG CAP.ER.24H PO SCH (08:24)
[2022-01-02] MEDS: Cholecalciferol (D-3) 1,000 UNIT (25MCG) TABLET PO SCH (08:24)
[2022-01-02] MEDS: Ascorbic Acid 500 MG TABLET PO SCH (08:24)
[2022-01-02] MEDS: *HR* OxyCODONE Immed Rel 5 MG TABLET PO PRN (11:56)
[2022-01-03] MEDS: *HR* Enoxaparin 40 MG/0.4 ML SYRINGE SQ SCH (05:58)
[2022-01-03 08:10] LABS: Basophils % 0.4 %; Eosinophils # 0.3 K/mcL (0.0-0.6); Eosinophils % 3.2 %; Hematocrit 33.7 % (35.3-44.9); Hemoglobin 10.9 g/dL (11.5-15.4); Immature Granulocytes % 0.6 % (0-4); Lymphocytes # 0.7 K/mcL (0.6-4.6); Lymphocytes % 8.5 %; Mean Corpuscular HGB Conc 32.3 g/dL (31.6-35.5); Mean Corpuscular Volume 98.8 fL (83.0-100.0); Mean Platelet Volume 10.8 fL (9.4-12.4); Monocytes % 12.2 %; Neutrophils # 6.2 K/mcL (1.6-8.9); Platelet Count 186 K/mcL (140-400); Red Blood Count 3.41 M/mcL (3.82-4.97); Red Cell Distribution Width 13.2 % (11.5-14.5); Segmented Neutrophils % 75.1 %; White Blood Count 8.3 K/mcL (4.3-11.1)
[2022-01-03] MEDS: Multivit/Ca/Min/Fe/FA 1 TAB TABLET PO SCH (08:16)
[2022-01-03] MEDS: predniSONE 5 MG TABLET PO SCH (08:16)
[2022-01-03] MEDS: Ascorbic Acid 500 MG TABLET PO SCH (08:16)
[2022-01-03] MEDS: Cholecalciferol (D-3) 1,000 UNIT (25MCG) TABLET PO SCH (08:16)
[2022-01-03] MEDS: Cyanocobalamin (B-12) 1,000 MCG TABLET PO SCH (08:16)
[2022-01-03] MEDS: DilTIAZem CD (24hr) 120 MG CAP.ER.24H PO SCH (08:18)
[2022-01-03] MEDS: Insulin LISPRO 300 UNITS/3 ML VIAL SUBQ SCH ×3 (08:19→16:26)
[2022-01-03 08:36] LABS: Calcium 8.4 mg/dL (8.6-10.3); Potassium 3.8 mEq/L (3.5-5.1)
[2022-01-03] MEDS ORDERED: polyethylene glycoL 3350 17 GM POWD.PACK PO SCH (09:00)
[2022-01-03 09:18] LABS: Influenza A PCR Negative (Negative); Influenza B PCR Negative (Negative); Resp. Syncytial Virus PCR Negative (Negative); SARS-CoV-2 by PCR (In House) Negative (Negative)
[2022-01-03 11:07] VITALS: BP 113/63; PULSE 93; TEMP 97.9
[2022-01-03 16:24] VITALS: O2SAT 95
[2022-01-03] MEDS: *HR* OxyCODONE Immed Rel 5 MG TABLET PO PRN (17:47)
== END 2022-01-03 18:20 | DRG 945 ==
LOC: EMEROOARM 10:15 → 4WAOSI 10:15 → SUATTDRO 16:08 → 4WAOSI 16:48
PROVIDERS: ADMIT Hospitalist; ATTEND Pharmacist